=== PATIENT | male | born 1930 | race Caucasian/White ===

== ENCOUNTER 2017-02-18 13:26 | Outpatient (CLI) | payer MEDICARE, OTHER ==
--- OUTSIDE RECORDS SUMMARY | 2017-02-18 14:10 | XMS | Clinical Summary ---
:1930 Author Organization [facility] Address [address] [place] [address] Phone Care Team Providers Name Role Phone , Primary Care Provider Unavailable Allergies Not on File Current Medications Not on file Active Problems Not on file Social History Tobacco Use Types Packs/Day Years Used Date Never Assessed Sex Assigned at Date Recorded Not on file Last Filed Vital Signs Not on file Plan of Treatment Not on file Results Not on filefrom Last 3 Months
--- NOTE | 2017-02-18 17:10 | MRI ---
BRAIN MRI WITHOUT CONTRAST 02/18/2017 COMPARISON: 07/18/2016 HISTORY: An 87-year-old male with history of stroke in June, unsteady gait for 2 months. Fall 3 weeks ago. TECHNIQUE: Multiplanar, multisequence MR imaging of the brain is obtained without contrast. FINDINGS: The diffusion weighted imaging demonstrates no evidence for acute infarction. The axial gradient echo imaging demonstrates no evidence for intracranial hemorrhage. There are numerous foci of increased T2 and FLAIR signal within the periventricular deep and subcort ical white matter, evidence of small vessel disease. Stable moderate diffuse cerebral volume loss w ith associated prominence of the CSF-containing spaces noted. There is mild mucosal thickening involving bilateral ethmoid air cells. Arterial flow voids at the axial level of the skull base are unremarkable on the T2-weighted imaging . Regional bone marrow signal intensity is grossly unremarkable. There is degenerative pannus posteri or to the dens, a stable finding. IMPRESSION: Small vessel disease and cerebral volume loss. No evidence for intracranial hemorrhage or acute inf arction. POS: NIRALI
== END 2017-02-18 13:27 | disposition home or self-care (01) ==
LOC: MRI 13:26
PROVIDERS: ATTEND Student in an Organized Health Care Education/Training Program
DX: I63.9 Cerebral infarction, unspecified (principal); I67.9 Cerebrovascular disease, unspecified; R26.81 Unsteadiness on feet; R26.89 Other abnormalities of gait and mobility; W19.XXXA Unspecified fall, initial encounter
CPT/HCPCS: 70551

== ENCOUNTER 2017-02-28 13:21 | Observation (INO) | payer MEDICARE, OTHER ==
[2017-02-28 14:27] LABS: #Eosinphils 0.2 thou/uL (0.0-0.7); #Monocytes 0.5 thou/uL (0.11-0.59); #Neutrophils 4.2 thou/uL (1.40-6.50); %Basophils 0.3 % (0.0-1.0); %Eosinophils 2.9 % (0.0-10.0); %Monocytes 8.9 % (0.0-10.0); Hematocrit 40.1 % (42.0-52.0); Mean Platelet Volume 8.2 fL (7.4-10.4); Red Blood Cell (RBC) Count 4.37 mill/uL (4.70-6.10); White Blood Cell (WBC) Count 5.9 thou/uL (4.8-10.8)
[2017-02-28 14:35] LABS: Prothrombin Time 13.5 SEC (12.0-14.7)
--- NOTE | 2017-02-28 14:41 | CT ---
CT OF THE BRAIN WITHOUT CONTRAST: Date: 02/28/17 INDICATION: 87-year-old male with possible CVA; patient was walking in the yard and reports went into the house and sat down and was unable to get up. Patient reports he tried to get up, but fell and hit his head on the table. The patient reports he is unable to lift his right leg. FINDINGS: The moderate chronic small vessel white matter ischemic change is similar. Small lacunar infarcts in volving the caudate heads and left basal ganglia are similar. There is a worsening air fluid level w ithin the right maxillary sinus with worsening ethmoid paranasal sinus disease. Mastoid air cells ar e clear. Skull is intact. IMPRESSION: 1. No acute intracranial abnormality. 2. Worsening paranasal sinus disease and air fluid level in right maxillary sinus. Recommend correl ation for symptoms and signs of acute sinusitis. There is slight bowing of the anterior wall of the right maxillary sinus inward which appears similar to a MRI examination dated 04/02/16. POS: NIRALI
[2017-02-28 14:48] LABS: ALT (SGPT) 7 U/L (8-55); AST (SGOT) 14 U/L (5-34); Alkaline Phosphatase 81 U/L (40-150); Anion Gap 15 mmol/L (10-20); BUN (Urea Nitrogen) 36 mg/dL (8.4-25.7); Bilirubin, Total 0.4 mg/dL (0.2-1.2); Calc. Creatinine Clearance 0 mL/min (70-130); Calcium 10.3 mg/dL (7.8-10.44); Carbon Dioxide 27 mmol/L (23-31); Chloride 102 mmol/L (98-107); Estimated GFR-MDRD 36; Globulin 3.5 g/dL (2.4-3.5); Protein, Total 7.9 g/dL (5.8-8.1)
[2017-02-28] MEDS ORDERED: Sodium Chloride 0.9% 1,000 ML IV SCH (17:20)
[2017-02-28] MEDS ORDERED: Ondansetron HCl/PF 4 MG/2 ML Vial IVP PRN (17:20)
[2017-02-28] MEDS ORDERED: Acetaminophen 325 MG TAB PO PRN ×2 (17:20→17:25)
[2017-02-28] MEDS ORDERED: Ondansetron ODT 4 MG TAB SL PRN (17:20)
[2017-02-28 17:25] VITALS: BMI 23.2
[2017-02-28] MEDS ORDERED: Ondansetron ODT 4 MG TAB PO PRN (17:25)
[2017-02-28] MEDS ORDERED: HYDROcodone/Acetaminophen 5/325 mg Tablet PO PRN (17:25)
[2017-02-28] MEDS ORDERED: hydrALAZINE 20 MG/ML VIAL SLOW IVP PRN (17:25)
[2017-02-28] MEDS: HYDROcodone/Acetaminophen 10/325 mg Tablet PO PRN (22:00)
[2017-02-28] MEDS: traZODone HCl 50 MG TAB PO SCH (22:02)
[2017-02-28] MEDS: Amlodipine 10 MG TAB PO SCH (22:02)
[2017-02-28] MEDS: Atorvastatin Calcium 20 MG TAB PO SCH (22:02)
[2017-02-28] MEDS: Aspirin 325 mg Enteric Coated Tablet PO SCH (22:02)
[2017-02-28] MEDS: Clopidogrel Bisulfate 75 MG TAB PO SCH (22:02)
[2017-02-28] MEDS: cloNIDine 0.1 MG TAB PO SCH (22:03)
[2017-03-01 05:16] LABS: #Eosinphils 0.1 thou/uL (0.0-0.7); #Lymphocytes 0.8 thou/uL (1.20-3.40); #Monocytes 0.7 thou/uL (0.11-0.59); #Neutrophils 4.9 thou/uL (1.40-6.50); %Eosinophils 1.1 % (0.0-10.0); %Lymphocytes 12.6 % (21.0-51.0); %Monocytes 11.1 % (0.0-10.0); Hematocrit 35.8 % (42.0-52.0); Mean Platelet Volume 8.2 fL (7.4-10.4); Red Blood Cell (RBC) Count 3.87 mill/uL (4.70-6.10); White Blood Cell (WBC) Count 6.5 thou/uL (4.8-10.8)
[2017-03-01 05:30] LABS: Anion Gap 12 mmol/L (10-20); BUN (Urea Nitrogen) 37 mg/dL (8.4-25.7); Calc. Creatinine Clearance 27 mL/min (70-130); Calcium 9.5 mg/dL (7.8-10.44); Carbon Dioxide 27 mmol/L (23-31); Chloride 103 mmol/L (98-107); Cholesterol 167 mg/dl (< 200 Desired); Estimated GFR-MDRD 34; LDL Cholesterol, Calculated 103 mg/dL
[2017-03-01] MEDS: cloNIDine 0.1 MG TAB PO SCH ×2 (08:21→20:30)
[2017-03-01] MEDS: Famotidine 20 MG TAB PO SCH (08:22)
--- NOTE | 2017-03-01 12:27 | MRI ---
BRAIN MRI NONCONTRAST: INDICATIONS: Right lower extremity paresis, resolved. COMPARISON: 02/18/2017 FINDINGS: There is parenchymal atrophy with compensatory dilatation of the ventricular system. No acute ama torial infarction, mass effect, or midline shift. There are redemonstrated, scattered cavitary lacu alejandra infarctions, both supratentorial and infratentorial in location, superimposed upon moderate manager professional development levi microvascular ischemic disease. Prominent opacification of the paranasal sinuses is present, an d notably right maxillary and ethmoid sinuses. Imaged skull base flow voids are grossly patent. IMPRESSION: 1. Redemonstration of atrophy and prominent chronic ischemic disease, with superimposed lacunar inf arctions, multifocal. 2. No acute territorial infarction or mass effect. POS: KAL
--- NOTE | 2017-03-01 13:42 | MRI ---
MRA NECK WITHOUT CONTRAST 3D VOLUME RENDERING: CLINICAL HISTORY: Right lower extremity paralysis, resolved. FINDINGS: The aortic arch and proximal aspects of the great vessels are excluded from view limiting assessment in this region. The imaged bilateral mid to distal common carotid arteries are patent. No high-gr ariel stenosis of either visualized cervical ICA. There is multifocal irregularity of the imaged ECA bilaterally. The visualized bilateral vertebral arteries are mildly tortuous without high-grade foc al stenosis. FINDINGS: Limited visualization, as above. Within the imaged aspects of the arterial system of the neck by no ncontrast [id number] technique, no definitive high-grade common carotid or internal carotid sten osis. POS: KAL
--- NOTE | 2017-03-01 13:49 | MRI ---
MRA BRAIN: DATE: 03/01/17. HISTORY: Right lower extremity paralysis which has now resolved. TECHNIQUE: Three-D [id number] images of the [place] and vertebrobasilar system are obtained in add ition to 3D MIP images. FINDINGS: There is mild narrowing involving the A1 segment of the left anterior cerebral artery which could be small in size, which is a normal variant, or possibly related to atherosclerotic narrowing. There is also a suggestion of a small focal area of narrowing involving the most proximal aspect superior branch of the M1 segment of the left middle cerebral artery which is also probably related to athero sclerotic narrowing. There is signal void involving the distal right vertebral artery. However, the signal within each d istal vertebral artery is not well visualized. I am unsure if this is artifactual, but given greate r dropout flow-related enhancement, this could be related to focal area of severe narrowing within t he distal right vertebral artery. There is opacification of the right maxillary antrum partially imaged. IMPRESSION: 1. Suggested areas of atherosclerotic narrowing involving the A1 segment left anterior cerebral art anil versus normal variant as well as focal area of atherosclerotic narrowing involving the superior branch of the left middle cerebral artery proximally. 2. Decreased flow-related enhancement involving each distal vertebral artery which is probably zahida factual, but there is a greater focal degree of decreased flow-related enhancement involving the dis shahida right vertebral artery which could be related to either a focal area of severe narrowing or poss ibly artifactual. 3. Focal eccentric narrowing involving the proximal basilar artery just distal to the confluence wh ich may be related to atherosclerotic narrowing. POS: NIRALI
--- NOTE | 2017-03-01 15:27 | DIS ---
DATE OF ADMISSION: 02/28/2017 DATE OF DISCHARGE: 03/01/2017 DISCHARGE DIAGNOSES: 1. Transient ischemic attack. 2. Cerebrovascular disease with history of stroke in the past. 3. Essential hypertension. 4. Atherosclerotic coronary artery disease. 5. Chronic kidney disease stage 3. CONSULTATIONS: Neurology. PROCEDURES: MRI of the head and neck with MRA showed no acute ischemic infarcts, chronic cerebrovas cular disease without evidence of significant disease in the location that would explain symptoms. HISTORY AND PHYSICAL: Mr. Madrigal is an 87-year-old gentleman with history of known vascular diseas e who presented to the emergency department after being unable to move his right leg. He got up yes terday, the morning of admission, to sit in his chair and then after that was unable to move his leg . He was brought to the emergency department for evaluation. Per the ER doctor, he was described as being able to lift his leg off the table and initiate movemen t. When I saw him, he was essentially back to normal. We were called for admission. HOSPITAL COURSE: The patient was examined by me in the Emergency Department with the above findings . He was placed in observation, MRI/MRA were obtained, he was continued on his full dose aspirin an d Plavix. Overnight, he had no further episodes. An MRI was negative for acute infarct, MRA head, no acute findings that would coincide with his clinical findings. He was seen by physical therapy and was able to stand, on second visit was able to ambulate with janet e assistance, but with the aid of a walker. He was stable for discharge with outpatient followup. PHYSICAL EXAMINATION: The patient was seen and examined on the day of discharge. Discharge plan and disposition was discussed with the patient face to face at the bedside. DISCHARGE MEDICATIONS: 1. Aspirin 325 mg daily. 2. Plavix 75 mg p.o. daily. 3. Amlodipine 10 mg p.o. at bedtime. 4. Lipitor 20 mg p.o. at bedtime. 5. Vitamin D3 2000 units p.o. b.i.d. 6. Folic acid 1 mg daily. 7. Hydrocodone 1 tab b.i.d. p.r.n. per home dosing. 8. Clonidine 0.1 mg p.o. b.i.d. 9. Trazodone 50 mg p.o. at bedtime. FOLLOWUP APPOINTMENTS: 1. Primary care physician within a week. PCP is Dr. Salbador Vasquez. 2. Follow up with his neurologist, Dr. Abeba Mensah in 1-2 weeks per their clinic. DISCHARGE ACTIVITY: As tolerated. DISCHARGE DIET: Heart healthy. DISCHARGE CONDITION: Stable. DISPOSITION: Being discharged to home via private vehicle with home health care for PT, OT. INSTRUCTIONS: Return to the emergency department worsening or return of symptoms.
--- NOTE | 2017-03-01 16:25 | HP ---
DATE OF ADMISSION: 02/28/2017 CHIEF COMPLAINT: Right leg paralysis. HISTORY OF PRESENT ILLNESS: Mr. Madrigal is an 87-year-old white male with a history of cerebrovascu lar disease, hyperlipidemia, hypertension, coronary artery disease, and chronic kidney disease stage 4, who presents to the emergency department for evaluation of acute onset of left leg paralysis. The patient states he was walking on 02/27/2017 and was doing well. Today, he was initially doing f ine, and sat down but then was unable to get up. He states that he did try and fell and hit his hea d on a table and has been unable to lift his right leg. He denies any pain or numbness and no paresis. He does have a history of stroke back in 2003 and in 03/2016. A CT scan of the head reportedly was unremarkable. He had workup at [facility], but we do not have complete records from there either or no films. In our Emergency Department, CT scan of the head was negative for acute intracranial abnormality. C BC was normal, and CMP was fairly normal with creatinine of 1.80, which is actually improved from hi s normal baseline. We were subsequently called for admission. On my questioning, the patient is able to move his right leg now. He can lift it above the bed with out any assistance. His strength appeared to be normal. PAST MEDICAL HISTORY: 1. Cerebrovascular disease as above. 2. Hyperlipidemia, primary cholesterol. 3. Hypertension. 4. Coronary artery disease. 5. Degenerative joint disease. 6. Chronic kidney disease stage 3-4. 7. Prostate cancer. PAST SURGICAL HISTORY: Includes, 1. Prostatectomy in 1991. 2. Hernia repair x4. He had left and right inguinal hernias repaired in 1966, left repeat in 1976, and the left repeat in 1982. 3. Right total hip arthroplasty. 4. Skin cancer removal. 5. Coronary artery bypass grafting x3 in 1996. 6. Right carotid endarterectomy in 2004. 7. Left total knee replacement in 2000. 8. Nerve transposition of the right elbow. 9. Bilateral cataract replacement in 2005. 10. Appendectomy in 194. HOME MEDICATIONS: 1. Hydrochlorothiazide 12.5 mg p.o. daily. 2. Amlodipine 10 mg daily. 3. Aspirin 325 mg daily. 4. Lipitor 80 mg p.o. at bedtime. 5. Vitamin D3 2000 units daily. 6. Plavix 75 mg daily. 7. Folic acid 1 mg daily. 8. Trazodone 50 mg p.o. at bedtime. 9. Iron sulfate 325 mg p.o. q.a.m. 10. Hydrocodone as needed. 11. Lopressor 50 mg p.o. b.i.d. 12. Omeprazole 20 mg p.o. q.a.m. 13. Clonidine 0.1 mg p.o. b.i.d. ALLERGIES: CODEINE causes nausea and vomiting. PENICILLINS caused him to fall but that was some 60 + years ago. FAMILY HISTORY: Negative for clotting or bleeding disorder, no immune dysfunction. SOCIAL HISTORY: Significant for daily alcohol but drinks only a few drinks a day. No tobacco ever and no history of IV drug use. REVIEW OF SYSTEMS: A 10-point review of systems was performed, negative for all systems except as s tated per HPI. PHYSICAL EXAMINATION: VITAL SIGNS: Temperature 98.2, pulse 79, blood pressure 195/92, respiratory rate 24, and satting 10 0% on room air. GENERAL: He is awake. He is alert. He is oriented x3. He is a thin, frail, elderly white male, w ho appears to be in no acute distress. HEENT: Normocephalic, atraumatic. Pupils equal, round, reactive to light bilaterally, mucous are m oist. There are no visible lesions. No thrush. NECK: Supple. There is no lymphadenopathy, no JVD, no thyromegaly. I do not hear any carotid brui ts. LUNGS: Clear to auscultation bilaterally. He has no wheezes, no rales, no rhonchi, and normal expi ratory phase. He has good air movement. Symmetrical chest excursion. CARDIOVASCULAR: Normal S1 and S2. No S3 or S4. He does have a 2/6 systolic ejection murmur best h eard at the left upper sternal border. ABDOMEN: Scaphoid. It is nontender, nondistended. No masses or organomegaly. He has normoactive bowel sounds present in all 4 quadrants. There is no rebound, rigidity, or guarding. EXTREMITIES: No cyanosis, no clubbing, no edema. He has got barely palpable thready pulse in the p osterior tibial and slightly better in dorsalis pedis. SKIN: Otherwise warm, moist, well perfused. He has no rashes, no lesions. There is a small hemato ma present on the left occiput. MUSCULOSKELETAL: Normal to inspection. He has no inflamed joints and no palpable joint effusions. NEUROLOGIC: Cranial nerves II through XII are grossly intact. He has a broken unsteady speech dilip dario, but thought process appears to be intact. Currently, he has 5/5 strength in his extensor and f lexor groups of the proximal muscle groups and distal muscle groups of his four extremities. He has no focal neurologic deficit at this time. LABORATORY DATA: CBC is normal. White blood cell count 5.9, hemoglobin 13.0. CMP is normal. Creatinine 1.80. Liver functions normal. RADIOGRAPHIC STUDIES: Reportedly, pelvic and head films from the outside facility were normal. CT scan of the head here is negative for any acute intracranial abnormality. ASSESSMENT AND PLAN: 1. Stroke versus transient ischemic attack. Neurologically, the patient seems basically resolved h is strength issues. I did not try to get him up at this time. We will place him in observation, we will get a MRI/MRA, we will continue his home aspirin and Plavix. We will get physical therapy, oc cupational therapy, and speech therapy evaluations, we will check a fasting lipid profile, and monit or him overnight. We will ask Neurology to evaluate and make recommendations. 2. History of hyperlipidemia: On Lipitor, we will continue. Check fasting lipid profile. 3. Hypertension. Continue home medications, watch his blood pressure, it is elevated now, but he h as not had his morning blood pressure medicines. 4. History of coronary artery disease, negative symptoms. Troponin was negative. 5. Chronic kidney disease 3-4. His creatinine is 1.0 which is good as I have seen it in the recent past on the lab history. 6. History of prostate cancer, status post prostatectomy, no urinary symptoms.
[2017-03-01] MEDS: traZODone HCl 50 MG TAB PO SCH (20:28)
[2017-03-01] MEDS: Atorvastatin Calcium 20 MG TAB PO SCH (20:28)
[2017-03-01] MEDS: Amlodipine 10 MG TAB PO SCH (20:28)
[2017-03-01] MEDS: Clopidogrel Bisulfate 75 MG TAB PO SCH (20:28)
[2017-03-01] MEDS: HYDROcodone/Acetaminophen 10/325 mg Tablet PO PRN (20:29)
[2017-03-01] MEDS: Aspirin 325 mg Enteric Coated Tablet PO SCH (20:29)
--- NOTE | 2017-03-01 22:38 | PRG ---
DATE OF SERVICE: 03/01/2017 CONSULTING PHYSICIAN: Hospitalist Service. Mr. Madrigal is an 87-year-old gentleman, who was previously seen by Dr. Mensah. He came in with compl aints of increased difficulty walking. He had complaints of pain in his lower extremities, which on the left had been fairly chronic secondary to prior hip replacement, is now complaining of some magalys n in the right leg as well. He was evaluated for a possible stroke, and his workup was negative. His exam shows some pain in both lower extremities with testing muscle strength. Sensation was inta ct. No edema or cyanosis was noted. SUMMARY: This is an elderly gentleman, who has some lower extremity pain, is making it difficult fo r him to walk. I am going to try him on a short course of steroids and followup with him in the off ice.
[2017-03-02] MEDS ORDERED: predniSONE 20 MG TAB PO SCH (08:00)
[2017-03-02] MEDS: HYDROcodone/Acetaminophen 10/325 mg Tablet PO PRN (09:32)
[2017-03-02] MEDS: Famotidine 20 MG TAB PO SCH (09:34)
[2017-03-02] MEDS: cloNIDine 0.1 MG TAB PO SCH (09:34)
--- NOTE | 2017-03-02 14:12 | PDOC.PN ---
- Subjective Encounter Start Date: 03/02/17 Encounter Start Time: 11:45 Pt seen and exmined. Surrounded by family. Seen by neuro last nght. Pt has had increased pain starting yesterday afternoon to the right hip and is unable to move it due tot he pain. Wilson mentioned this and started prednisone. PT says the norco helps. today, seems a little worse. MRI/MRA unremarkable. No intervention added by Dr Byrne. 10 point ROS performed and neg for all systems except as per HPI - Objective Resuscitation Status: Resuscitation Status FULL:Full Resuscitation MAR Reviewed: Yes Vital Signs & Weight: Vital Signs (12 hours) Temp Pulse Resp BP BP BP BP 03/02/17 12:00 98.0 F 71 16 124/66 03/02/17 10:45 122/61 110/73 03/02/17 09:34 165/81 H 03/02/17 08:00 98.0 F 71 16 03/02/17 07:15 97.9 F 74 18 165/81 H 03/02/17 04:00 97.6 F 70 16 139/72 Pulse Ox 03/02/17 12:00 95 03/02/17 10:45 03/02/17 09:34 03/02/17 08:00 03/02/17 07:15 96 03/02/17 04:00 97 Weight Weight 152 lb 14.4 oz I&O: 03/01/17 03/02/17 03/03/17 06:59 06:59 06:59 Intake Total 1365 1590 Balance 1365 1590 Result Diagrams: 03/01/17 03:51 03/01/17 03:51 Radiology Reviewed by me: Yes EKG Reviewed by me: Yes Phys Exam - Physical Examination Constitutional: NAD HEENT: PERRLA, moist MMs, sclera anicteric, oral pharynx no lesions Neck: no nodes, no JVD, supple, full ROM Respiratory: no wheezing, no rales, no rhonchi, clear to auscultation bilateral Cardiovascular: RRR, no significant murmur, no rub Gastrointestinal: soft, non-tender, no distention, positive bowel sounds Musculoskeletal: no edema, pulses present right hip tender to palpation, increased pain with active and passive ROM Neurological: non-focal, normal sensation, moves all 4 limbs Lymphatic: no nodes Psychiatric: normal affect, A&O x 3 Skin: no rash, normal turgor, cap refill <2 seconds Dx/Plan (1) HLD (hyperlipidemia) Code(s): E78.5 - HYPERLIPIDEMIA, UNSPECIFIED Status: Acute Qualifiers: Hyperlipidemia type: mixed hyperlipidemia Qualified Code(s): E78.2 - Mixed hyperlipidemia (2) HTN (hypertension) Code(s): I10 - ESSENTIAL (PRIMARY) HYPERTENSION Status: Acute Qualifiers: Hypertension type: essential hypertension Qualified Code(s): I10 - Essential (primary) hypertension (3) History of CVA (cerebrovascular accident) Code(s): Z86.73 - PRSNL HX OF TIA (TIA), AND CEREB INFRC W/O RESID DEFICITS Status: Acute Comment: improved, now cant moveright leg due ot pain, right am and face normal (4) TIA (transient ischemic attack) Status: Resolved (5) CKD (chronic kidney disease) Code(s): N18.9 - CHRONIC KIDNEY DISEASE, UNSPECIFIED Status: Chronic Qualifiers: Chronic kidney disease stage: stage 3 (moderate) Qualified Code(s): N18.3 - Chronic kidney disease, stage 3 (moderate) Comment: Avoid nephrotoxic meds, serial creatinine (6) Hip pain, right Code(s): M25.551 - PAIN IN RIGHT HIP Status: Acute Comment: after fall. report was cameron tinitial cecelia megative, but i will repeat these STAT. suspect a missed fracture - Plan * .
--- NOTE | 2017-03-02 15:16 | RAD ---
LEFT HIP TWO VIEWS: 03/02/17 HISTORY: 87-year-old male with left hip pain following a recent fall. Total left hip replacement changes. Surgical clips left hemipelvis. No evidence for acute fracture o r dislocation. IMPRESSION: Status post left total hip replacement changes without fracture or without evidence for a periprosth etic fracture or dislocation or other acute process. POS: NIRALI
--- NOTE | 2017-03-02 15:17 | RAD ---
RIGHT HIP TWO VIEWS: 03/02/17 HISTORY: 87-year-old male with right hip pain following a recent fall. Mild right hip degenerative changes. Postsurgical changes in the right pelvis and right scrotum. IMPRESSION: No fracture or dislocation. POS: NIRALI
[2017-03-02 15:55] VITALS: BP 147/79; TEMP 97.8
--- NOTE | 2017-03-30 12:16 | EKG ---
Test Reason : Blood Pressure : / mmHG Vent. Rate : 070 BPM Atrial Rate : 070 BPM P-R Int : 132 ms QRS Dur : 144 ms QT Int : 448 ms P-R-T Axes : 000 -32 007 degrees QTc Int : 483 ms Normal sinus rhythm Left axis deviation Right bundle branch block Voltage criteria for left ventricular hypertrophy No STEMI Abnormal ECG Confirmed by KARLI MOE, BOBBY Verduzco ([id number]), news video editor ANTHONY SEARS ([id number]) on 03/30/2017 12:16:05 PM Referred By: Confirmed By:BOBBY CALVILLO MD
== END 2017-03-02 18:39 ==
LOC: ERS 13:21 → 2SE 15:20
PROVIDERS: ADMIT Internal Medicine Infectious Disease; ATTEND Internal Medicine Infectious Disease
DX: G45.9 Transient cerebral ischemic attack, unspecified (principal); I67.9 Cerebrovascular disease, unspecified; I25.10 Atherosclerotic heart disease of native coronary artery without angina pectoris; I12.9 Hypertensive chronic kidney disease with stage 1 through stage 4 chronic kidney disease, or unspecified chronic kidney disease; N18.4 Chronic kidney disease, stage 4 (severe); E78.5 Hyperlipidemia, unspecified; M19.90 Unspecified osteoarthritis, unspecified site; Z79.02 Long term (current) use of antithrombotics/antiplatelets; Z79.82 Long term (current) use of aspirin; Z79.899 Other long term (current) drug therapy; Z88.5 Allergy status to narcotic agent; Z88.0 Allergy status to penicillin; Z98.42 Cataract extraction status, left eye; Z98.41 Cataract extraction status, right eye; Z96.641 Presence of right artificial hip joint; Z95.1 Presence of aortocoronary bypass graft; Z96.1 Presence of intraocular lens; Z96.652 Presence of left artificial knee joint; Z90.49 Acquired absence of other specified parts of digestive tract; Z90.79 Acquired absence of other genital organ(s); Z98.890 Other specified postprocedural states; Z86.73 Personal history of transient ischemic attack (TIA), and cerebral infarction without residual deficits; Z85.828 Personal history of other malignant neoplasm of skin; Z85.46 Personal history of malignant neoplasm of prostate
CPT/HCPCS: 70450; 70544; 70547; 70551; 73502 ×2; 80048; 80053; 80061; 85025 ×2; 85610; 85730; 93005; 96374; 97139 ×2; 97530 ×3; 99285; G0378; G8978; G8979; G8987; G8988; 36415; G8996-GN-CI; G8997-GN-CI; J0360; J7506; Q0162

== ENCOUNTER 2018-02-05 11:47 | Outpatient (CLI) | payer MEDICARE, OTHER ==
--- NOTE | 2018-02-05 13:51 | RAD ---
3 VIEW CERVICAL SPINE SERIES: Date: 02/05/18 INDICATION: Spondylolisthesis. FINDINGS: Three lateral views of the cervical spine are submitted for interpretation. The low cervical spine/ce rvicothoracic junction is not visualized for comment. There is degenerative kyphotic curvature of the mid to low cervical spine with near complete loss of disc space height of C5-6 and a slight degree o f retrolisthesis. No obvious translational motion. Prevertebral soft tissues are normal in thickness. There are metallic clips overlying the neck. IMPRESSION: Prominent degenerative findings of the cervical spine, limited by bilateral projections. Mild retroli sthesis of C5-6 without significant degree of translational motion. POS: [facility]
--- NOTE | 2018-02-05 13:52 | RAD ---
LUMBAR SPINE SERIES THREE VIEWS: INDICATIONS: Spondylolisthesis. TECHNIQUE: Neutral and lateral extension and flexion views are submitted for interpretation. FINDINGS: On the neutral projection, there is no significant malalignment. No obvious translational motion of significance is discerned between flexion and extension positioning. There is mild superior endplate height loss of L1. There is multilevel endplate degenerative change and disk space narrowing throug hout the lumbar spine, as well as multilevel facet osteoarthritis. Incidental note of degenerative f indings of the lower thoracic spine. Partially imaged hip hardware and metallic clips overly the pel vis. Atherosclerotic vascular disease is incidentally noted. IMPRESSION: 1. No obvious translational motion or significant malalignment of the lumbar spine. 2. Mild L1 superior endplate height loss. Correlate clinically. POS: NIRALI
== END 2018-02-05 11:48 | disposition home or self-care (01) ==
LOC: RAD 11:47
PROVIDERS: ATTEND Specialist
DX: M47.812 Spondylosis without myelopathy or radiculopathy, cervical region (principal); M47.816 Spondylosis without myelopathy or radiculopathy, lumbar region; M43.12 Spondylolisthesis, cervical region
CPT/HCPCS: 72040; 72100

== ENCOUNTER 2018-02-18 13:43 | Outpatient (CLI) | payer MEDICARE, OTHER ==
--- NOTE | 2018-02-18 15:37 | RAD ---
LUMBAR SPINE FOUR VIEWS: History: 88-year-old male with history of spondylosis of the lumbar region without myelopathy or radiculopathy . Comparison: 02-05-18 FINDINGS: There are some moderate dextroscoliosis. Disc osteophytosis, particularly of the upper lumbar disc. E xtensive surgical clips in the pelvis and left total hip replacement. No evidence for significant abn ormal translation between flexion and extension. IMPRESSION: Extensive dextroscoliosis with spondylosis, particularly the upper lumbar spine, stable from prior st udy. POS: NIRALI
--- NOTE | 2018-02-18 16:04 | RAD ---
CERVICAL SPINE FOUR VIEWS INCLUDING FLEXION AND EXTENSION AND LATERAL VIEWS: 02/18/18 COMPARISON: 02/05/18. Multilevel disc osteophytosis changes are noted, particularly at C4-5, C5-6, and C6-7 with generalize d facet arthrosis. No significant abnormal translation between flexion and extension. No significant prevertebral soft tissue swelling. Stable mild retrolisthesis of C5 on C6. IMPRESSION: Significant multilevel spondylosis with very mild retrolisthesis of C5 on C6 without evidence for abn ormal translation between flexion and extension. POS: NIRALI
--- NOTE | 2018-02-18 16:54 | MRI ---
MRI LUMBAR SPINE NONCONTRAST: Date: 02/18/18 HISTORY: Low back pain. Worsening after a fall 6 months ago. FINDINGS: Images including the retroperitoneum show atrophy of the cortex of each kidney. Small cysts arise fro m the cortex of each kidney. Some hypointense lesions involving the cortex of the left kidney likely represent the equivalent of hyperdense cysts. There is prominent rightward convex rotatory scoliotic curvature. Degenerative changes of the lower l umbar spine are apparent. Conus medullaris is within normal limits. Scattered areas of fatty change o f the bone marrow and scattered hemangiomas are apparent. There is desiccation of all of the interver tebral discs. T12-L1: Disc space narrowing and minimal degenerative spondylolisthesis. Mild disc bulge. Circumfere ntial degenerative changes with minimal stenosis of the central canal and mild stenosis of each neura l foramen. L1-2: Disc space narrowing. Minimal disc bulge. Circumferential degenerative changes. Minimal stenos is of the central canal. Moderate to severe bilateral foraminal stenosis. L2-3: Disc space narrowing. Mild disc bulge. Thecal sac is patent. Moderate bilateral foraminal sten osis. L3-4: Disc space narrowing with minimal degenerative spondylolisthesis. Posterior disc bulge and cir cumferential degenerative changes. Moderate stenosis of the central canal. Mild right and moderate to severe left foraminal stenosis. L4-5: Disc space narrowing. Minimal degenerative spondylolisthesis. Disc bulge and circumferential d egenerative changes with moderate stenosis of the central canal and each neural foramen. L5-S1: Minimal disc bulge. Osteophytosis of each facet. Thecal sac is patent. Degenerative changes w ith severe right and moderate left foraminal stenosis. IMPRESSION: Multilevel degenerative changes throughout the lumbar spine as detailed above, including significant foraminal stenosis. Most severe on the right at the lumbosacral junction. Clinical correlation regard ing the right L5 dermatome is required. POS: [facility]
--- NOTE | 2018-02-18 17:20 | MRI ---
MRI CERVICAL SPINE NONCONTRAST: Date: 02/18/18 HISTORY: 88-year-old male with M54.12, radiculopathy of cervical region. COMPARISON: No prior cervical spine MRIs. FINDINGS: The cervical spine cord is normal in size and signal. There is partial loss of lordosis. Severe left degenerative facet changes at C2-3, C3-4, and C4-5. Moderate bilateral facet DJD at C7-T1. Moderate r ight facet DJD at C2-3. Mild to moderate right facet DJD at C3-4. Disc space narrowing is mild at C4-5, moderate to severe at C5-6, and moderate at C6-7. Vertebral bod y heights are maintained. C1-2: No central stenosis. C2-3: No high grade central stenosis. Mild right neural foraminal stenosis. Mild to moderate left ne ural foraminal stenosis. C3-4: Broad based disc-osteophytic bar complex protrudes into the anterior aspect of the spinal tyrell l, asymmetrically larger on the left side, contiguous with moderate size left uncinate process osteop hytes. Overall mild degree of central spinal canal stenosis and severe left neural foraminal stenosis . Mild right neural foraminal stenosis. C4-5: Broad based disc-osteophytic bar complex. Mild central stenosis. Small right uncinate process osteophytes causing mild to moderate right neural foraminal stenosis. Moderate size left uncinate pro cess osteophytes causing moderate to severe left neural foraminal stenosis. C5-6: Slight degenerative retrolisthesis of C5 on C6, together with broad based disc-osteophytic bar complex that indents the ventral surface of the spinal cord, results in moderate to severe central s roger canal stenosis. Bilateral moderate sized uncinate process osteophytes result in moderate to sev ere bilateral neural foraminal stenosis, right greater than left. There is ligamentum flavum thickeni ng contributing to the central spinal canal stenosis. C6-7: Broad based disc-osteophytic bar complex protrudes into the spinal canal, asymmetrically large r on the right, causing moderate to severe central spinal canal stenosis. Bilateral moderate to large uncinate process osteophytes causing severe right neural foraminal stenosis and moderate left neural foraminal stenosis. C7-T1: No high grade central stenosis. Bilateral moderate neural foraminal stenosis. IMPRESSION: 1. High grade cervical spondylosis, with multilevel degenerative disc disease and multilevel facet o steoarthrosis. The facet osteoarthrosis is asymmetrically worse on the left side. 2. Multiple levels of central spinal canal stenosis and high grade neural foraminal stenosis. POS: [facility]
== END 2018-02-18 13:44 | disposition home or self-care (01) ==
LOC: BICMRI 13:43
PROVIDERS: ATTEND Specialist
DX: M47.812 Spondylosis without myelopathy or radiculopathy, cervical region (principal); M47.816 Spondylosis without myelopathy or radiculopathy, lumbar region; M51.16 Intervertebral disc disorders with radiculopathy, lumbar region; M41.9 Scoliosis, unspecified; M48.02 Spinal stenosis, cervical region; M99.81 Other biomechanical lesions of cervical region; M50.10 Cervical disc disorder with radiculopathy, unspecified cervical region; M99.83 Other biomechanical lesions of lumbar region
CPT/HCPCS: 72050; 72120; 72141; 72148

== ENCOUNTER 2018-03-06 14:06 | Emergency (ER) | payer MEDICARE, OTHER ==
[2018-03-06 14:40] LABS: #Eosinphils 0.2 thou/uL (0.0-0.7); #Lymphocytes 1.2 thou/uL (1.20-3.40); #Monocytes 0.4 thou/uL (0.11-0.59); #Neutrophils 3.5 thou/uL (1.40-6.50); %Basophils 0.6 % (0.0-1.0); %Eosinophils 3.5 % (0.0-10.0); %Lymphocytes 23.3 % (21.0-51.0); %Monocytes 6.7 % (0.0-10.0); %Neutrophils 65.8 % (42.0-75.0); Hemoglobin 13.6 g/dL (14.0-18.0); Mean Corpuscular HGB CONC 33.9 g/dL (32.0-36.0); Mean Corpuscular Volume 88.6 fL (78.0-98.0); Mean Platelet Volume 9.2 fL (7.4-10.4); Platelet Count 128 thou/uL (130-400); RBC Distribution Width 12.1 % (11.5-14.5); Red Blood Cell (RBC) Count 4.53 mill/uL (4.70-6.10); White Blood Cell (WBC) Count 5.3 thou/uL (4.8-10.8)
[2018-03-06 15:00] LABS: ALT (SGPT) 17 U/L (8-55); AST (SGOT) 25 U/L (5-34); Albumin 5.1 g/dL (3.4-4.8); Alkaline Phosphatase 72 U/L (40-150); Anion Gap 15 mmol/L (10-20); BUN (Urea Nitrogen) 39 mg/dL (8.4-25.7); Bilirubin, Total 0.6 mg/dL (0.2-1.2); Calc. Creatinine Clearance 0 mL/min (70-130); Calcium 10.4 mg/dL (7.8-10.44); Carbon Dioxide 26 mmol/L (23-31); Chloride 103 mmol/L (98-107); Estimated GFR-MDRD 32; Globulin 3.5 g/dL (2.4-3.5); Glucose 87 mg/dL (83-110); Potassium 4.3 mmol/L (3.5-5.1); Protein, Total 8.6 g/dL (5.8-8.1); Sodium 140 mmol/L (136-145)
[2018-03-06 15:03] LABS: Troponin I 0.126 ng/mL (< 0.028)
[2018-03-06 15:06] LABS: CKMB 7.4 ng/mL (0-6.6)
[2018-03-06] MEDS ORDERED: cloNIDine 0.1 MG TAB ONE (15:20)
[2018-03-06 17:56] LABS: CKMB 5.4 ng/mL (0-6.6); Troponin I 0.103 ng/mL (< 0.028)
--- NOTE | 2018-03-07 17:21 | EKG ---
Test Reason : HTN Blood Pressure : / mmHG Vent. Rate : 063 BPM Atrial Rate : 063 BPM P-R Int : 134 ms QRS Dur : 148 ms QT Int : 476 ms P-R-T Axes : 000 -33 006 degrees QTc Int : 487 ms Normal sinus rhythm Left axis deviation Right bundle branch block Voltage criteria for left ventricular hypertrophy Abnormal ECG Confirmed by FERNANDEZ MOE, ELVIA ([id number]), editor map ANTHONY SEARS ([id number]) on 03/07/2018 5:20:44 PM Referred By: Confirmed By:ELVIA PRESLEY MD
== END 2018-03-06 18:40 | disposition home or self-care (01) ==
LOC: ERS 14:06
DX: I10 Essential (primary) hypertension (principal); E78.5 Hyperlipidemia, unspecified; Z79.899 Other long term (current) drug therapy
CPT/HCPCS: 36415; 80053; 82553; 84484; 85025; 93005; J1040; S0020

== ENCOUNTER 2018-05-12 10:03 | Inpatient (IN) | payer MEDICARE, OTHER ==
[2018-05-12 10:30] LABS: #Eosinphils 0.1 thou/uL (0.0-0.7); #Lymphocytes 0.6 thou/uL (1.20-3.40); #Monocytes 0.5 thou/uL (0.11-0.59); #Neutrophils 5.3 thou/uL (1.40-6.50); %Basophils 0.4 % (0.0-1.0); %Eosinophils 1.3 % (0.0-10.0); %Lymphocytes 9.9 % (21.0-51.0); %Monocytes 6.9 % (0.0-10.0); %Neutrophils 81.5 % (42.0-75.0); Mean Corpuscular HGB CONC 33.6 g/dL (32.0-36.0); Mean Corpuscular Hemoglobin 30.8 pg (27.0-31.0); Mean Corpuscular Volume 91.8 fL (78.0-98.0); Mean Platelet Volume 8.9 fL (7.4-10.4); Platelet Count 135 thou/uL (130-400); RBC Distribution Width 12.6 % (11.5-14.5); White Blood Cell (WBC) Count 6.5 thou/uL (4.8-10.8)
[2018-05-12 10:50] LABS: ALT (SGPT) 34 U/L (8-55); AST (SGOT) 32 U/L (5-34); Albumin 4.4 g/dL (3.4-4.8); Alkaline Phosphatase 71 U/L (40-150); Anion Gap 18 mmol/L (10-20); BUN (Urea Nitrogen) 69 mg/dL (8.4-25.7); Bilirubin, Total 0.5 mg/dL (0.2-1.2); Calc. Creatinine Clearance 0 mL/min (70-130); Carbon Dioxide 20 mmol/L (23-31); Chloride 107 mmol/L (98-107); Estimated GFR-MDRD 25; Globulin 3.3 g/dL (2.4-3.5); Glucose 77 mg/dL (83-110); Potassium 4.8 mmol/L (3.5-5.1); Protein, Total 7.7 g/dL (5.8-8.1); Sodium 140 mmol/L (136-145)
[2018-05-12 11:19] LABS: CKMB 6.8 ng/mL (0-6.6)
--- NOTE | 2018-05-12 11:46 | RAD ---
PA AND LATERAL CHEST: History: Chest pain. Comparison: 07-05-10 FINDINGS: There are changes of median sternotomy. The heart size is borderline. There is patchy consolidation i n the right upper lobe. No pneumothoraces or pleural effusions are seen. IMPRESSION: Findings are suspicious for pneumonia. POS: [facility]
[2018-05-12] MEDS ORDERED: Bisacodyl 10 MG SUPP ONE (11:52)
--- NOTE | 2018-05-12 12:13 | RAD ---
2 VIEWS OF ABDOMEN: Date: 05/12/18 HISTORY: Obstipation. Pain across chest and radiating from the upper abdomen. Pain is constant. FINDINGS: There is a moderate amount of retained fecal material seen throughout the colon suggesting constipati on. No dilated loops of small bowel are visualized. Multiple surgical clips overlie the pelvis. No kuo spicious calcifications are visualized. Left total hip prosthesis is present. Degenerative change is noted in the spine. Vascular calcifications seen in the region of the iliac and femoral arteries. There is partial visualization of postsurgical changes related to CABG. Vascular calcification seen i n the thoracic aorta. Linear interstitial densities are seen at each lung base. This would be better evaluated with chest x-ray. IMPRESSION: 1. Evidence for constipation. 2. Postsurgical changes of the pelvis. 3. Degenerative changes in the spine. 4. Suggested increased interstitial densities in each lung base. This would be better evaluated with chest x-ray. 5. Remote fracture right posterior 10th and 11th ribs. POS: [facility]
[2018-05-12] MEDS ORDERED: Magnesium Citrate 300 ML BOT ONE (12:35)
[2018-05-12] MEDS ORDERED: Sodium Chloride 0.9% 100 ML ONE (13:05)
[2018-05-12] MEDS ORDERED: cefTRIAXone\\ROCEPHIN 2 GM VIAL ONE (13:05)
[2018-05-12] MEDS ORDERED: Azithromycin 500 MG VIAL ONE ×2 (13:05→14:02)
[2018-05-12] MEDS ORDERED: Acetaminophen 500 MG TAB ONE (13:24)
[2018-05-12] MEDS ORDERED: Ondansetron PF 4 MG/2 ML Vial ONE (14:08)
[2018-05-12 14:57] LABS: CKMB 4.6 ng/mL (0-6.6)
[2018-05-12] MEDS ORDERED: Furosemide 40 MG/4 ML VIAL SLOW IVP SCH (16:00)
[2018-05-12] MEDS ORDERED: Ondansetron ODT 4 MG TAB PO PRN (16:15)
[2018-05-12] MEDS ORDERED: Ondansetron PF 4 MG/2 ML Vial IVP PRN (16:15)
[2018-05-12] MEDS ORDERED: Acetaminophen 325 MG TAB ONE (16:25)
[2018-05-12] MEDS ORDERED: Furosemide 40 MG/4 ML VIAL ONE (16:25)
[2018-05-12 16:37] LABS: Actual Bicarbonate (HCO3a) 21.5 mEq/L (22-28); Analyzer IN Cardio ER; CO2 Tension 29.3 mmHg (35.0-45.0); Calcium, Ionized 1.15 mmol/L (1.12-1.30); Carboxyhemoglobin (COHb) 0.3 gm% (0.0-3.0); Hemoglobin (Hb) 12.5 g/dL (14.0-18.0); Potassium - ABG Lab 4.46 mmol/L (3.70-5.30); pH, Arterial 7.48 (7.35-7.45)
[2018-05-12 16:40] LABS: O2 Tension (PaO2) 56.2 mmHg (> 60.0)
[2018-05-12 16:41] LABS: Puncture Site LRA
[2018-05-12] MEDS ORDERED: VANCOMYCIN IVPB PRN ×2 (18:05→18:18)
[2018-05-12] MEDS ORDERED: CEFEPIME IVPB PRN ×2 (18:05→18:18)
[2018-05-12] MEDS ORDERED: Vancomycin HCl 1 GM in Premix Bag 1 BAG IVPB SCH (19:00)
[2018-05-12] MEDS ORDERED: Cefepime 2 GM in Sodium Chloride 0.9% 100 ML IVPB SCH ×2 (20:00→21:00)
[2018-05-12] MEDS: Atorvastatin Calcium 20 MG TAB PO SCH (21:00)
[2018-05-12] MEDS: Amlodipine 10 MG TAB PO SCH (21:00)
[2018-05-12] MEDS ORDERED: Aspirin 325 mg Enteric Coated Tablet PO SCH (21:00)
[2018-05-12] MEDS ORDERED: CCU Electrolyte Replacement 1 EACH FS ONE (23:14)
[2018-05-12] MEDS ORDERED: Potassium Chloride 40 MEQ in Premix Bag 1 BAG IVPB PRN (23:22)
[2018-05-12] MEDS ORDERED: Potassium Chloride 40 MEQ in Sodium Chloride 0.9% 250 ML 250 ML IVPB PRN (23:22)
[2018-05-12] MEDS ORDERED: Potassium Phosphate 12 MMOL in Sodium Chloride 0.9% 250 ML 250 ML IV PRN (23:22)
[2018-05-12] MEDS ORDERED: Magnesium 2 GM/NS 0.9% 100 ML 2 GM in Premix Bag 1 BAG IVPB PRN (23:22)
[2018-05-12] MEDS ORDERED: CCU ELECTROLYTE REPLACEMENT PROTOCOL FS PRN (23:22)
[2018-05-12] MEDS ORDERED: Magnesium Oxide 400 MG TAB PO PRN ×2 (23:22)
[2018-05-12] MEDS ORDERED: Potassium Chloride 20 MEQ TAB PO PRN (23:22)
[2018-05-12] MEDS ORDERED: Potassium Phosphate 9 MMOL in Sodium Chloride 0.9% 100 ML IVPB PRN (23:22)
[2018-05-12] MEDS ORDERED: Potassium Phosphate 15 MMOL in Sodium Chloride 0.9% 250 ML 250 ML IV PRN (23:22)
[2018-05-12] MEDS ORDERED: Clindamycin/D5W 600 MG in Premix Bag 1 BAG IVPB SCH (23:30)
[2018-05-13] MEDS ORDERED: Vancomycin HCl 1 GM in Premix Bag 1 BAG IVPB SCH (00:15)
--- NOTE | 2018-05-13 01:17 | CON ---
DATE OF CONSULTATION: 05/12/2018 CONSULTING PHYSICIAN: Reese Morales. REASON FOR CONSULTATION: Acute respiratory failure related to either pneumonia or congestive heart failure. The following encompassed 45 minutes of critical care time. HISTORY OF PRESENT ILLNESS: The patient is an 88-year-old male, who presented to the emergency room earlier today with obstipation. He was given laxative by mouth and apparently had an episode of emesis. He was hypoxic initially, but became more hypoxic afterwards. He failed non-rebreather facemask oxygen therapy, was placed on BiPAP, and has been comfortable ever since. He denies any preceding cough, congestion or other symptom of pneumonia including fever. He denies any previous history of heart failure. PAST MEDICAL HISTORY: 1. Transient ischemic attack. 2. Hyperlipidemia. 3. Hypertension. PAST SURGICAL HISTORY: Coronary bypass grafting surgery, hernia repair, right hip replacement and prostatectomy. SOCIAL HISTORY: He drinks less than 5 drinks per day. Does not use illicit drugs. Has no smoking history. He is a retired [employer] officer. He also worked for the [employer] for a number of years. PSYCHIATRIC HISTORY: Unremarkable. ALLERGIES: PENICILLIN AND CODEINE. MEDICATIONS: Prior to admission: 1. Ecotrin 325 mg daily. 2. Vitamin D3 of 2000 international units daily. 3. Atorvastatin 40 mg daily. 4. Omeprazole 20 mg daily. 5. Plavix 75 mg daily. 6. Folate 1 mg daily. 7. Amlodipine 10 mg daily. PHYSICAL EXAMINATION: VITAL SIGNS: Presenting temperature was 97.6, blood pressure was initially 170/ 90, pulse 60, respiratory rate 25, blood pressure since fallen 130/65. HEENT: Unremarkable. NECK: No adenopathy, JVD, or bruits. LUNGS: He has some crackles at both bases, right greater than left. CARDIAC: S1, S2 regular without murmur. ABDOMEN: Soft, nontender, and nondistended. EXTREMITIES: No clubbing, cyanosis, or edema. LABORATORY DATA: Sodium 140, potassium 4.8, chloride 107, CO2 of 20, BUN 69, creatinine 2.4, glucose 77. His troponin is 1.006. CPK is 304. BNP 1256. PH 7.48, pCO2 of 29, PO2 of 56 on 4 L nasal cannula. White blood cell count 6.5, hematocrit 35.8, and platelet count 135. His x-ray shows bilateral infiltrative changes, right greater than left. ASSESSMENT: Acute hypoxic respiratory failure. Initially, I thought he probably had pneumonia but looking at his blood pressure trend and his elevated BNP, I am thinking now more that this could be congestive heart failure. At worse, he could have some semblance of both. RECOMMENDATIONS: 1. I would recommend adding Cleocin to his antibiotics, because of the suspicion of aspiration. 2. He needs to be in the CCU for the time being. 3. Status is critical. I would hold off on oral diet at this time as he could get worse and needs intubated. I have added Protonix for GI prophylaxis, enoxaparin for DVT prophylaxis. We will check an echocardiogram. Job ID: [id number] [facility]
--- NOTE | 2018-05-13 01:30 | HP ---
PRIMARY CARE PHYSICIAN: Dr. Anibal Stark. CHIEF COMPLAINT: Cough and shortness of breath. HISTORY OF PRESENT ILLNESS: Mr. Madrigal is a pleasant 88-year-old male, who had presented to [facility] with cough and shortness of breath over the last 2 to 3 days. He states he has a past medical history of CAD, status post CABG 20 years ago, hyperlipidemia, hypertension, chronic kidney disease stage 4, and chronic CHF. He states over the last week he had developed a cough, that has been progressively getting worse for the last 2 to 3 days. He states he saw his primary care physician for what seemed like cellulitis on his nose and face about 4 days ago and started on Bactrim. He states he was overall improving; however, his cough and shortness of breath continued to worsen. Upon arrival to the ED, he was noticed to be slightly fluid overloaded, chest x-ray was obtained, which showed findings suspicious for pneumonia. He was started on IV azithromycin and ceftriaxone in the ED, where he received one dose of each. He was also complaining of abdominal pain with bloating along with no bowel movement in 1 week, 2-view abdomen x-ray revealed evidence for constipation. He had received 10 mg rectal Dulcolax and magnesium citrate 1.745 g orally. After this, he had proceeded to vomit. After about an hour, he had a large bowel movement in the emergency department and his abdominal pain improved. However, over the course of his ED visit, he had became more short of breath and had required oxygen via nasal cannula. He was titrated up to 6 L and O2 sat is about 88% to 89%. He became quite tachycardic and had increased work of breathing. Therefore, he was started on rebreather, ABGs were obtained and it was found that his pO2 was 56.2, pCO2 was 29.3, pH 7.48, on 4 L via nasal cannula. It was determined that the patient would require an inpatient admission to the [facility] for further evaluation and would be placed on BiPAP and closely monitored with further management pending the pulmonology and ICU team. REVIEW OF SYSTEMS: All other review of systems is negative unless mentioned in the HPI. PAST MEDICAL HISTORY: Cerebrovascular disease; hyperlipidemia; hypertension; coronary artery disease, status post CABG 20 years ago; degenerative joint disease; chronic kidney disease, stage 4; history of prostate cancer; chronic CHF. PAST SURGICAL HISTORY: Prostatectomy in 1991, hernia repair x4, right total hip arthroplasty, skin cancer removal, coronary artery bypass graft x3 in 1996, right carotid endarterectomy in 2004, left total knee replacement in 2000, nerve transposition in right elbow, bilateral cataract replacement, and appendectomy. HOME MEDICATIONS: 1. Amlodipine 10 mg oral daily. 2. Atorvastatin 20 mg oral daily. 3. Aspirin 325 mg oral daily. 4. Ferrous sulfate 325 mg oral daily. 5. Folic acid 1 mg oral daily. 6. Prilosec 20 mg oral daily. 7. Vitamin D3 2000 units daily. 8. Centrum Ultra Men's multivitamin once daily. 9. Tramadol 50 mg oral as needed for pain. 10. Bactrim DS oral two times daily, that he is taking for cellulitis. ALLERGIES: CODEINE, PENICILLINS. FAMILY HISTORY: Noncontributory. SOCIAL HISTORY: Denies any alcohol, tobacco or illicit drug use. PHYSICAL EXAMINATION: VITAL SIGNS: Blood pressure 155/78, pulse 84, and respirations 21. GENERAL: The patient is awake, alert, and oriented x3. Currently on BiPAP. HEENT: Normocephalic and atraumatic. Pupils equal, round, and reactive to light. Extraocular muscles intact. Moist mucous membranes noted. Oropharynx is clear without exudates or erythema. NECK: Soft and supple. No JVD. No thyromegaly. No carotid bruits noted. Trachea midline. LUNGS: Coarse breath sounds noted on the right. Clear to auscultation on the left. Symmetric chest excursion and expansion. CARDIOVASCULAR: Positive S1 and S2. Regular rate and rhythm. Positive 2/6 systolic murmur noted. ABDOMEN: Soft, nontender, and nondistended. Bowel sounds present. No rebound, no rigidity, no guarding. EXTREMITIES: Moves all extremities equal. Strength 5+ bilaterally in upper and lower extremities. No cyanosis. No clubbing. No edema noted. SKIN: Warm, dry, and intact. No rashes. No lesions. NEUROLOGIC: Cranial nerves 2 through 12 grossly intact. No focal deficits noted. Strength 5+ bilaterally in upper and lower extremities. LABORATORY DATA: WBC 6.5, RBC 3.9, hemoglobin 12.0, and platelet 135. Sodium 140, potassium 4.8, anion gap 18, BUN 69, creatinine 2.43, and estimated GFR 25. BNP 1256.1. Troponin 0.217, 0.266. CK-MB 4.6. DIAGNOSTIC IMAGING: Abdomen x-ray showed evidence of constipation. PA and lateral chest showed findings suspicious for pneumonia with patchy consolidation in the right upper lobe. ASSESSMENT AND PLAN: 1. Pneumonia, suspicion for aspiration pneumonia with recent episode of vomiting. We will place n.p.o., discontinue IV Rocephin and azithromycin and place on IV vancomycin and cefepime with pharmacy to dose. Consult Pulmonary Services, check ABG. Place the patient on BiPAP and transfer to [facility] for further monitoring and management. 2. Acute on chronic congestive heart failure, and give IV Lasix 40 mg x1 dose, obtain echocardiogram to assess cardiac status. We will also consider Cardiology Services consultation based on clinical findings and the patient's progress. 3. Elevated troponin, this could likely be secondary to his acute on chronic CHF and/or chronic kidney disease. Troponin was found to be elevated at 0.2, we will order a recheck and continue to monitor. The patient is currently asymptomatic at this time. 4. Acute on chronic kidney disease, stage 4. Continue to monitor. Hold all nephrotoxic medications and dose antibiotics accordingly. Recheck BMP in the morning. We will also consider consultation to Nephrology Services if needed. 5. Hypertension. Due to the patient's risk of aspiration, we will make n.p.o. and hold home medications at this time, place IV antihypertensive regimen as needed for an elevated blood pressure. 6. Deep vein thrombosis and gastrointestinal prophylaxis. 7. Code status, full code, family will have a meeting to discuss this further, but we will keep the patient full code for now. 8. Plan to admit the patient to [facility] and start on BiPAP, he may require intubation if not improving. We will recheck blood gas while on BiPAP and further management per Pulmonology team. Job ID: [id number]
[2018-05-13] MEDS ORDERED: Cefepime 1 GM in Sodium Chloride 0.9% 100 ML IVPB SCH ×2 (02:00→20:00)
[2018-05-13] MEDS ORDERED: Cefepime 2 GM in Sodium Chloride 0.9% 100 ML IVPB SCH (02:00)
[2018-05-13 03:23] VITALS: BMI 23.3
[2018-05-13 05:03] LABS: Anion Gap 15 mmol/L (10-20); BUN (Urea Nitrogen) 61 mg/dL (8.4-25.7); Calc. Creatinine Clearance 20 mL/min (70-130); Carbon Dioxide 23 mmol/L (23-31); Chloride 105 mmol/L (98-107); Estimated GFR-MDRD 26; Glucose 91 mg/dL (83-110); Potassium 4.6 mmol/L (3.5-5.1); Sodium 138 mmol/L (136-145)
[2018-05-13 05:25] LABS: #Eosinphils 0.1 thou/uL (0.0-0.7); #Lymphocytes 0.5 thou/uL (1.20-3.40); #Monocytes 0.4 thou/uL (0.11-0.59); #Neutrophils 4.3 thou/uL (1.40-6.50); %Eosinophils 1.7 % (0.0-10.0); %Lymphocytes 9.3 % (21.0-51.0); %Monocytes 8.1 % (0.0-10.0); %Neutrophils 80.9 % (42.0-75.0); Hemoglobin 11.5 g/dL (14.0-18.0); Mean Corpuscular HGB CONC 31.1 g/dL (32.0-36.0); Mean Corpuscular Hemoglobin 28.6 pg (27.0-31.0); Mean Corpuscular Volume 91.7 fL (78.0-98.0); Mean Platelet Volume 9.7 fL (7.4-10.4); Platelet Count 111 thou/uL (130-400); Platelet Morphology Comment Appears Decreased; RBC Distribution Width 12.5 % (11.5-14.5); RBC Morphology Normal; Red Blood Cell (RBC) Count 4.04 mill/uL (4.70-6.10); White Blood Cell (WBC) Count 5.3 thou/uL (4.8-10.8)
[2018-05-13] MEDS: Clindamycin/D5W 600 MG in Premix Bag 1 BAG IVPB SCH ×3 (05:45→21:31)
--- NOTE | 2018-05-13 08:14 | RAD ---
AP CHEST: Date: 05-13-18 Comparison: 04-01-16 FINDINGS: AP chest demonstrates sternotomy wires seen. Ectasia of the aorta and calcification of the aorta is seen. There is interval development of airspace opacity in the right upper lobe concerning for right upper lobe pneumonia. There is some volume loss of the right upper lobe. IMPRESSION: Right upper lobe opacity concerning for an area of right upper lobe pneumonia. Follow up films to res olution recommended. POS: [facility]
[2018-05-13] MEDS ORDERED: Furosemide 40 MG/4 ML VIAL IVP SCH (08:15)
[2018-05-13] MEDS: Pantoprazole 40 MG VIAL IVP SCH (08:36)
[2018-05-13] MEDS: Ferrous Sulfate 325 MG TAB PO SCH (08:37)
[2018-05-13 08:44] LABS: Troponin I 3.264 ng/mL (< 0.028)
[2018-05-13] MEDS ORDERED: Aspirin 300 MG Suppository PR SCH (09:00)
[2018-05-13] MEDS ORDERED: Enoxaparin Sodium 30 MG/0.3 ML SYRINGE SC SCH (09:00)
[2018-05-13] MEDS ORDERED: Azithromycin 250 MG TAB PO SCH (09:00)
[2018-05-13] MEDS ORDERED: cefTRIAXone\\ROCEPHIN 2 GM in Sodium Chloride 0.9% 100 ML IVPB SCH (09:00)
[2018-05-13] MEDS ORDERED: Prevnar 13-Val Conj/PF 0.5 ML SYRINGE IM ONE (09:00)
[2018-05-13] MEDS ORDERED: Heparin 25,000 units/D5W 500 ML IVPB SCH (09:15)
[2018-05-13] MEDS ORDERED: Heparin 10,000 UNITS/ 10 ML VIAL SLOW IVP SCH (09:15)
--- NOTE | 2018-05-13 09:29 | PRG ---
DATE OF SERVICE: 05/13/2018 SUBJECTIVE: He remains on noninvasive ventilation. He looks better than when I saw him in the ER yesterday. OBJECTIVE: VITAL SIGNS: Temperature is 100.2, pulse 72, blood pressure 153/68, and respiratory rate 18. His minute ventilation is about 28 L/minute on the BiPAP. Intake since admission 350. Output was all quantitated in the diaper, so we do not know the exact amount. HEENT: Unremarkable. NECK: No JVD. LUNGS: Fairly clear. CARDIAC: Could not be examined because he is getting an echo. ABDOMEN: Soft. EXTREMITIES: No edema. LABORATORY DATA: Sodium 138, potassium 4.6, chloride 105, CO2 of 23, BUN 61, creatinine 2.3, and glucose 91. BNP down to 892. White blood cell count 5.3, hematocrit 37, and platelet count 111. His chest x-ray shows a persistent right upper lobe infiltrate. ASSESSMENT: 1. Pneumonia - possibly aspiration. 2. Obstipation at the time of admission. 3. Elevated BNP. PLAN: 1. Await results of the echo from this morning. 2. Probably give him another dose of diuretics. Continue the antibiotics and hopefully wean off the BiPAP. 3. Go ahead and start him on a diet. Job ID: [id number]
[2018-05-13 09:43] LABS: Hemoglobin 11.1 g/dL (14.0-18.0); Platelet Count 102 thou/uL (130-400)
[2018-05-13] MEDS: Aspirin 325 MG TAB PO SCH (09:44)
[2018-05-13] MEDS: Acetaminophen 325 MG TAB PO PRN (09:44)
--- NOTE | 2018-05-13 19:20 | PDOC.PN ---
- Subjective Encounter Start Date: 05/13/18 Encounter Start Time: 09:00 Subjective: pt up in bed feels much better today - Objective Resuscitation Status - Order Detail: 05/12/18 16:15 Resuscitation Status Routine Co-Sign Provider: Resuscitation Status: FULL: Full Resuscitation Vital Signs & Weight: Vital Signs (12 hours) Temp Pulse Pulse BP BP Pulse Ox 05/13/18 16:00 97.9 F 05/13/18 12:00 99.0 F 05/13/18 10:38 76 70 114/66 127/61 05/13/18 08:30 99 05/13/18 08:00 100.8 F H 100 Weight Admit Weight 148 lb 9.465 oz Weight 146 lb 2.664 oz Most Recent Monitor Data Heart Rate from ECG 67 NIBP 117/62 NIBP BP-Mean 80 Respiration from ECG 22 SpO2 93 I&O: 05/12/18 05/13/18 05/14/18 06:59 06:59 06:59 Intake Total 350 1764 Output Total 3 4 Balance 347 1760 Result Diagrams: 05/13/18 09:18 05/13/18 04:00 Phys Exam - Physical Examination Neck: no nodes, no JVD, supple, full ROM mild rhonchi all over Cardiovascular: RRR, no significant murmur, no rub, gallop, irregular Gastrointestinal: soft, non-tender, no distention, positive bowel sounds Dx/Plan (1) Acute respiratory failure with hypoxia Code(s): J96.01 - ACUTE RESPIRATORY FAILURE WITH HYPOXIA Status: Acute (2) Pneumonia Code(s): J18.9 - PNEUMONIA, UNSPECIFIED ORGANISM Status: Acute (3) HTN (hypertension) Code(s): I10 - ESSENTIAL (PRIMARY) HYPERTENSION Status: Acute Qualifiers: Hypertension type: essential hypertension Qualified Code(s): I10 - Essential (primary) hypertension (4) Dyslipidemia Code(s): E78.5 - HYPERLIPIDEMIA, UNSPECIFIED Status: Acute Comment: Continue Lipitor 80mg hs - Plan pt off bipap, on oxygen -: will continue abx for now -: heparin stated on pt, will consult cardiology for elevated trops -: echo ef of 45-50% * . Review of Systems - Review of Systems Respiratory: negative: Cough, Dry, Shortness of Breath, Hemoptysis, SOB with Excertion, Pleuritic Pain, Sputum, Wheezing Cardiovascular: negative: chest pain, palpitations, orthopnea, paroxysmal nocturnal dyspnea, edema, light headedness, other Gastrointestinal: negative: Nausea, Vomiting, Abdominal Pain, Diarrhea, Constipation, Melena, Hematochezia, Other - Medications/Allergies Allergies/Adverse Reactions: Allergies Allergy/AdvReac Type Severity Reaction Status Date / Time Penicillins Allergy Mild Verified 05/13/18 03:07 codeine Allergy Verified 05/13/18 03:07 Medications: Current Medications Acetaminophen (Tylenol) 650 mg PO Q4H PRN PRN Reason: Headache/Fever/Mild Pain (1-3) Last Admin: 05/13/18 09:44 Dose: 650 mg Albuterol/Ipratropium (Duoneb) 3 ml NEB Q4H PRN PRN Reason: SOB &/or Wheezing Amlodipine Besylate (Norvasc) 10 mg PO [facility] Last Admin: 05/12/18 21:00 Dose: Not Given Aspirin (Aspirin) 325 mg PO DAILY [facility] Last Admin: 05/13/18 09:44 Dose: 325 mg Atorvastatin Calcium (Lipitor) 20 mg PO [facility] Last Admin: 05/12/18 21:00 Dose: Not Given Ferrous Sulfate (Feosol) 325 mg PO [facility] Last Admin: 05/13/18 08:37 Dose: 325 mg Heparin Sodium (Porcine) (Heparin 1,000 Units/Ml (10 Ml)) 0 units SLOW IVP ASDIR [facility]; Protocol Vancomycin HCl 1 gm/ Device 200 mls @ 200 mls/hr IVPB 1900 [facility] Clindamycin Phosphate/Dextrose (600 mg/ Device) 50 mls @ 100 mls/hr IVPB Q8HR [facility] Last Admin: 05/13/18 15:42 Dose: 50 mls Cefepime HCl 1 gm/ Sodium (Chloride) 100 mls @ 200 mls/hr IVPB 0200 [facility] Heparin Sodium/Dextrose (Heparin 25,000 Units/D5w 500 Ml) 500 mls @ 0 mls/hr IVPB INF [facility]; Protocol Miscellaneous Medication (Pharmacy To Dose) 1 each IVPB DAILYPRN PRN PRN Reason: LABS Ccu Electrolyte (Replacement Protocol) 0 each FS PRN PRN PRN Reason: FOR ELECTROLYTE REPLACEMENT Ondansetron HCl (Zofran Odt) 4 mg PO Q6H PRN PRN Reason: Nausea/Vomiting Ondansetron HCl (Zofran) 4 mg IVP Q6H PRN PRN Reason: Nausea/Vomiting Pantoprazole Sodium (Protonix) 40 mg IVP DAILY [facility] Last Admin: 05/13/18 08:36 Dose: 40 mg
[2018-05-13] MEDS: Amlodipine 10 MG TAB PO SCH (21:31)
[2018-05-13] MEDS: Atorvastatin Calcium 20 MG TAB PO SCH (21:31)
[2018-05-14 00:17] LABS: Vancomycin, Random 10.1 ug/mL (See Comment)
--- NOTE | 2018-05-14 00:57 | CON ---
DATE OF CONSULTATION: HISTORY OF PRESENT ILLNESS: Mr. Madrigal is an 88-year-old white male, admitted with pneumonia and increased shortness of breath. In July of 1996, he underwent CABG x3 with PAIGE to LAD and vein graft to the first diagonal and obtuse marginal by Dr. Elliott. He was initially followed by [facility]; however, he is now seen by Dr. Simpson. Last echo was in March 2016, which revealed ejection fraction of 55% to 60% with aortic valvular sclerosis. He was last seen in the office on March 20, 2018. He denied any chest discomfort or shortness of breath. He now is admitted with increased cough and shortness of breath for the last 2 to 3 days. He denies any fever at home. He denies any significant chest discomfort. He was somewhat hypoxic in the emergency room with O2 saturations in the high 80s. PH was 7.48, pCO2 of 29.3, pO2 of 56.2. He has been given antibiotics and admitted for further evaluation. PAST MEDICAL HISTORY: Coronary artery disease, hypertension, hyperlipidemia, chronic kidney disease, prostate cancer, history of congestive heart failure, cerebrovascular disease. OPERATIONS: CABG, prostatectomy in 1991, hernia repair, right total hip replacement, right carotid endarterectomy, left total knee replacement, nerve transposition in the right elbow, bilateral cataract surgery, and appendectomy. MEDICATIONS: Include, 1. Atorvastatin 40 mg daily. 2. Aspirin 325 daily. 3. Amlodipine 10 mg daily. 4. Ferrous sulfate 325 daily. 5. Folic acid 1 mg daily. 6. Prilosec 20 mg daily. 7. Vitamin D3. 8. Centrum Ultra Men's multivitamin daily. 9. Bactrim DS b.i.d. 10. Tramadol. ALLERGIES: 1. CODEINE. 2. PENICILLIN. SOCIAL HISTORY: He does not smoke or drink. REVIEW OF SYSTEMS: A 12-point review of systems is, otherwise, unremarkable. PHYSICAL EXAMINATION: VITAL SIGNS: Blood pressure 117/62, pulse of 67. HEENT: PERRL. NECK: Supple. CHEST: Reveals decreased breath sounds in right upper lobe. CARDIAC: S1 and S2 normal without any S3, S4, or murmurs. ABDOMEN: Normal bowel sounds without tenderness or organomegaly. EXTREMITIES: Revealed no clubbing, cyanosis, or edema. NEUROLOGICAL: Grossly intact. SKIN: Warm and dry. LABORATORY DATA: EKG revealed normal sinus rhythm with left axis deviation, right bundle-branch block. Echocardiogram revealed mild left ventricular dysfunction with ejection fraction 40% to 45%, evidence for diastolic dysfunction, moderate left atrial enlargement, mild mitral regurgitation, mild aortic stenosis, mild tricuspid regurgitation, mild pulmonic regurgitation. Hemoglobin 11.1, hematocrit 32.9, platelets 102,000. PTT 37.3. Sodium 138, potassium 4.6, chloride 105, carbon dioxide 23, BUN 61, creatinine 2.38. Troponin I is up to 3.264. BNP 892.5. CK 304. IMPRESSION: 1. Probable demand ischemia from pneumonia as well as renal insufficiency. 2. Right upper lobe pneumonia. 3. Status post coronary artery bypass graft. 4. Hypertension. 5. Hypercholesterolemia. 6. History of cerebrovascular disease. 7. Ischemic cardiomyopathy, EF 40-45%. PLAN: The patient will continue on IV antibiotics and we will continue to follow this patient with you. He has had a drop in his ejection fraction over the last 2 to 3 years. Job ID: [id number] [facility]
[2018-05-14] MEDS ORDERED: Vancomycin HCl 750 MG in Sodium Chloride 0.9% 250 ML 250 ML IVPB SCH (01:00)
[2018-05-14] MEDS ORDERED: Cefepime 1 GM in Sodium Chloride 0.9% 100 ML IVPB SCH (02:00)
[2018-05-14 05:54] LABS: #Eosinphils 0.2 thou/uL (0.0-0.7); #Lymphocytes 0.7 thou/uL (1.20-3.40); #Monocytes 0.3 thou/uL (0.11-0.59); #Neutrophils 2.7 thou/uL (1.40-6.50); %Basophils 0.1 % (0.0-1.0); %Eosinophils 4.7 % (0.0-10.0); %Lymphocytes 17.7 % (21.0-51.0); %Monocytes 8.2 % (0.0-10.0); %Neutrophils 69.3 % (42.0-75.0); Hemoglobin 10.7 g/dL (14.0-18.0); Mean Corpuscular HGB CONC 33.3 g/dL (32.0-36.0); Mean Corpuscular Hemoglobin 30.4 pg (27.0-31.0); Mean Corpuscular Volume 91.4 fL (78.0-98.0); Mean Platelet Volume 9.2 fL (7.4-10.4); Platelet Count 96 thou/uL (130-400); RBC Distribution Width 12.3 % (11.5-14.5); Red Blood Cell (RBC) Count 3.51 mill/uL (4.70-6.10); White Blood Cell (WBC) Count 3.9 thou/uL (4.8-10.8)
[2018-05-14 06:01] LABS: Anion Gap 12 mmol/L (10-20); BUN (Urea Nitrogen) 59 mg/dL (8.4-25.7); Calc. Creatinine Clearance 20 mL/min (70-130); Calcium 8.5 mg/dL (7.8-10.44); Carbon Dioxide 25 mmol/L (23-31); Chloride 105 mmol/L (98-107); Estimated GFR-MDRD 27; Glucose 83 mg/dL (83-110); Potassium 4.1 mmol/L (3.5-5.1); Sodium 138 mmol/L (136-145)
[2018-05-14] MEDS: Clindamycin/D5W 600 MG in Premix Bag 1 BAG IVPB SCH (06:10)
[2018-05-14] MEDS: Ferrous Sulfate 325 MG TAB PO SCH (08:20)
[2018-05-14] MEDS: Aspirin 325 MG TAB PO SCH (08:20)
[2018-05-14] MEDS: Acetaminophen 325 MG TAB PO PRN (08:21)
[2018-05-14] MEDS: Pantoprazole 40 MG VIAL IVP SCH (08:21)
--- NOTE | 2018-05-14 12:26 | PRG ---
DATE OF SERVICE: 05/14/2018 SUBJECTIVE: Mr. Madrigal is doing well. He is up in a chair. Has no complaints. OBJECTIVE: VITAL SIGNS: Temperature 98.7, pulse 64, respirations 16, O2 saturation 97%, and blood pressure 118/61. HEENT: Unremarkable. NECK: No JVD. CHEST: Clear. CARDIAC: S1 and S2. Regular. ABDOMEN: Soft. EXTREMITIES: No edema. LABORATORY DATA: White blood cell count 3.9, hematocrit 32.1, and platelet count 96. Sodium 138, potassium 4.1, BUN 59, creatinine 2.3. ASSESSMENT: 1. Aspiration pneumonia-improved to the point where he is now off oxygen-so far cultures are stable. 2. Depressed ejection fraction 40% to 45% with elevated BNP at the time of admission. PLAN: I will change him over to oral antibiotics. He is probably stable to go home from pulmonary standpoint, but may need further cardiac testing. Job ID: [id number]
--- NOTE | 2018-05-14 15:46 | PDOC.PN ---
- Subjective Encounter Start Date: 05/14/18 Encounter Start Time: 11:15 Subjective: pt up in bed feels better today - Objective Resuscitation Status - Order Detail: 05/12/18 16:15 Resuscitation Status Routine Co-Sign Provider: Resuscitation Status: FULL: Full Resuscitation Vital Signs & Weight: Vital Signs (12 hours) Temp Pulse Pulse Pulse Resp BP BP 05/14/18 15:14 98 F 63 16 05/14/18 13:10 65 65 152/65 H 133/61 05/14/18 11:27 98 F 64 16 05/14/18 07:26 98.6 F 74 16 05/14/18 03:52 99 F 67 16 BP BP Pulse Ox 05/14/18 15:14 145/67 H 97 05/14/18 13:10 05/14/18 11:27 118/61 97 05/14/18 07:26 161/72 H 97 05/14/18 03:52 143/66 H 96 Weight Admit Weight 148 lb 9.465 oz Weight 158 lb 1.6 oz Most Recent Monitor Data Heart Rate from ECG 67 NIBP 117/62 NIBP BP-Mean 80 Respiration from ECG 22 SpO2 93 I&O: 05/13/18 05/14/18 05/15/18 06:59 06:59 06:59 Intake Total 350 2289 Output Total 3 4 Balance 347 2285 Result Diagrams: 05/14/18 04:55 05/14/18 04:55 Phys Exam - Physical Examination Respiratory: no wheezing, no rales, no rhonchi, wheezing present, clear to auscultation bilateral Cardiovascular: RRR, no significant murmur, no rub, gallop, irregular Gastrointestinal: soft, non-tender, no distention, positive bowel sounds Musculoskeletal: no edema, pulses present, edema present Dx/Plan (1) Acute respiratory failure with hypoxia Code(s): J96.01 - ACUTE RESPIRATORY FAILURE WITH HYPOXIA Status: Acute (2) Pneumonia Code(s): J18.9 - PNEUMONIA, UNSPECIFIED ORGANISM Status: Acute (3) HTN (hypertension) Code(s): I10 - ESSENTIAL (PRIMARY) HYPERTENSION Status: Acute Qualifiers: Hypertension type: essential hypertension Qualified Code(s): I10 - Essential (primary) hypertension (4) Dyslipidemia Code(s): E78.5 - HYPERLIPIDEMIA, UNSPECIFIED Status: Acute Comment: Continue Lipitor 80mg hs - Plan will continue abx for now -: PT to work with pt -: possible discharge in am -: echo indicated depressed ef -: will add coreg for bp, no magdiel due to mavrel * . Review of Systems - Review of Systems Respiratory: negative: Cough, Dry, Shortness of Breath, Hemoptysis, SOB with Excertion, Pleuritic Pain, Sputum, Wheezing Cardiovascular: negative: chest pain, palpitations, orthopnea, paroxysmal nocturnal dyspnea, edema, light headedness, other Gastrointestinal: negative: Nausea, Vomiting, Abdominal Pain, Diarrhea, Constipation, Melena, Hematochezia, Other - Medications/Allergies Allergies/Adverse Reactions: Allergies Allergy/AdvReac Type Severity Reaction Status Date / Time Penicillins Allergy Mild Verified 05/13/18 03:07 codeine Allergy Verified 05/13/18 03:07 Medications: Current Medications Acetaminophen (Tylenol) 650 mg PO Q4H PRN PRN Reason: Headache/Fever/Mild Pain (1-3) Last Admin: 05/14/18 08:21 Dose: 650 mg Albuterol/Ipratropium (Duoneb) 3 ml NEB Q4H PRN PRN Reason: SOB &/or Wheezing Amlodipine Besylate (Norvasc) 10 mg PO [facility] Last Admin: 05/13/18 21:31 Dose: 10 mg Aspirin (Aspirin) 325 mg PO DAILY [facility] Last Admin: 05/14/18 08:20 Dose: 325 mg Atorvastatin Calcium (Lipitor) 20 mg PO [facility] Last Admin: 05/13/18 21:31 Dose: 20 mg Cefdinir (Omnicef) 600 mg PO DAILY [facility] Ferrous Sulfate (Feosol) 325 mg PO [facility] Last Admin: 05/14/18 08:20 Dose: 325 mg Ccu Electrolyte (Replacement Protocol) 0 each FS PRN PRN PRN Reason: FOR ELECTROLYTE REPLACEMENT Ondansetron HCl (Zofran Odt) 4 mg PO Q6H PRN PRN Reason: Nausea/Vomiting Ondansetron HCl (Zofran) 4 mg IVP Q6H PRN PRN Reason: Nausea/Vomiting Pantoprazole Sodium (Protonix) 40 mg IVP DAILY [facility] Last Admin: 05/14/18 08:21 Dose: 40 mg
[2018-05-14] MEDS: Carvedilol 6.25 MG TAB PO SCH (16:39)
[2018-05-14] MEDS: Atorvastatin Calcium 20 MG TAB PO SCH (20:05)
[2018-05-14] MEDS: Amlodipine 10 MG TAB PO SCH (20:06)
[2018-05-15] MEDS ORDERED: Vancomycin HCl 1 GM in Premix Bag 1 BAG IVPB SCH (01:00)
[2018-05-15 06:26] LABS: Anion Gap 14 mmol/L (10-20); BUN (Urea Nitrogen) 42 mg/dL (8.4-25.7); Calc. Creatinine Clearance 26 mL/min (70-130); Calcium 8.8 mg/dL (7.8-10.44); Carbon Dioxide 22 mmol/L (23-31); Chloride 106 mmol/L (98-107); Estimated GFR-MDRD 31; Glucose 84 mg/dL (83-110); Potassium 3.9 mmol/L (3.5-5.1); Sodium 138 mmol/L (136-145)
[2018-05-15 06:28] LABS: #Eosinphils 0.3 thou/uL (0.0-0.7); #Lymphocytes 1.2 thou/uL (1.20-3.40); #Monocytes 0.5 thou/uL (0.11-0.59); #Neutrophils 3.1 thou/uL (1.40-6.50); %Basophils 0.5 % (0.0-1.0); %Eosinophils 5.4 % (0.0-10.0); %Lymphocytes 22.9 % (21.0-51.0); %Monocytes 10.3 % (0.0-10.0); %Neutrophils 60.9 % (42.0-75.0); Hemoglobin 11.4 g/dL (14.0-18.0); Mean Corpuscular Hemoglobin 29.2 pg (27.0-31.0); Mean Corpuscular Volume 91.1 fL (78.0-98.0); Mean Platelet Volume 8.9 fL (7.4-10.4); Platelet Count 115 thou/uL (130-400); RBC Distribution Width 12.3 % (11.5-14.5); Red Blood Cell (RBC) Count 3.91 mill/uL (4.70-6.10)
[2018-05-15 08:49] LABS: Hemoglobin 12.1 g/dL (14.0-18.0); Platelet Count 133 thou/uL (130-400)
[2018-05-15 09:26] LABS: Troponin I 1.459 ng/mL (< 0.028)
[2018-05-15] MEDS: Pantoprazole 40 MG VIAL IVP SCH (10:09)
[2018-05-15] MEDS: Acetaminophen 325 MG TAB PO PRN (10:10)
[2018-05-15] MEDS: Carvedilol 6.25 MG TAB PO SCH ×3 (10:10→17:25)
[2018-05-15] MEDS: Folic Acid 1 MG TAB PO SCH (10:11)
[2018-05-15] MEDS: Ferrous Sulfate 325 MG TAB PO SCH (10:11)
[2018-05-15] MEDS: Aspirin 325 MG TAB PO SCH (10:11)
[2018-05-15] MEDS: Sodium Chloride 0.9% 10 ML ONE ×2 (10:11→10:12)
[2018-05-15] MEDS: Cefdinir 300 MG CAP PO SCH (10:11)
--- NOTE | 2018-05-15 11:04 | PRG ---
DATE OF SERVICE: 05/15/2018 SUBJECTIVE: He is awake, alert, sitting up in a chair, looks to be doing well. OBJECTIVE: VITAL SIGNS: Temperature 98.2, pulse 65, blood pressure 120/58, and O2 saturation 96% on room air HEENT: Unremarkable. NECK: No JVD. CHEST: Clear. CARDIAC: S1 and S2, regular. ABDOMEN: Soft. EXTREMITIES: No edema. LABORATORY DATA: Hematocrit 38.5, and platelet count 133. Sodium 130, potassium 3.9, BUN 42, creatinine 2.0. Troponin 1.45. ASSESSMENT: 1. Status post acute respiratory failure related to aspiration. 2. Low ejection fraction. PLAN: The patient is ready for rehab from a Pulmonary standpoint. He is on oral antibiotic medication. No further Pulmonary recommendations and we will sign off. Please re-call if further assistance is needed. Job ID: [id number]
--- NOTE | 2018-05-15 15:15 | PDOC.PN ---
- Subjective Encounter Start Date: 05/15/18 Encounter Start Time: 10:30 Subjective: pt up in chair complains of generalized weakness - Objective Resuscitation Status - Order Detail: 05/12/18 16:15 Resuscitation Status Routine Co-Sign Provider: Resuscitation Status: FULL: Full Resuscitation Vital Signs & Weight: Vital Signs (12 hours) Temp Pulse Resp BP BP BP Pulse Ox 05/15/18 11:54 97.8 F 61 16 130/62 05/15/18 10:10 128/58 L 05/15/18 08:00 98.2 F 55 L 16 128/58 L 96 05/15/18 04:00 97.9 F 67 18 141/67 H 96 Weight Admit Weight 148 lb 9.465 oz Weight 160 lb 9 oz Most Recent Monitor Data Heart Rate from ECG 67 NIBP 117/62 NIBP BP-Mean 80 Respiration from ECG 22 SpO2 93 I&O: 05/14/18 05/15/18 05/16/18 06:59 06:59 06:59 Intake Total 2289 1440 Output Total 4 Balance 2285 1440 Result Diagrams: 05/15/18 08:22 05/15/18 05:32 Phys Exam - Physical Examination Neck: no nodes, no JVD, supple, full ROM Respiratory: no wheezing, no rales, no rhonchi, wheezing present, clear to auscultation bilateral Cardiovascular: RRR, no significant murmur, no rub, gallop, irregular Gastrointestinal: soft, non-tender, no distention, positive bowel sounds Dx/Plan (1) Acute respiratory failure with hypoxia Code(s): J96.01 - ACUTE RESPIRATORY FAILURE WITH HYPOXIA Status: Acute (2) Pneumonia Code(s): J18.9 - PNEUMONIA, UNSPECIFIED ORGANISM Status: Acute (3) HTN (hypertension) Code(s): I10 - ESSENTIAL (PRIMARY) HYPERTENSION Status: Acute Qualifiers: Hypertension type: essential hypertension Qualified Code(s): I10 - Essential (primary) hypertension (4) Dyslipidemia Code(s): E78.5 - HYPERLIPIDEMIA, UNSPECIFIED Status: Acute Comment: Continue Lipitor 80mg hs - Plan pt and family wants rehab, will consult for rehab screen -: will conitnue abx orally -: elevated trop due to demand ischemia per cardio -: pt has no chest pain. * . Review of Systems - Review of Systems Respiratory: negative: Cough, Dry, Shortness of Breath, Hemoptysis, SOB with Excertion, Pleuritic Pain, Sputum, Wheezing Cardiovascular: negative: chest pain, palpitations, orthopnea, paroxysmal nocturnal dyspnea, edema, light headedness, other Gastrointestinal: negative: Nausea, Vomiting, Abdominal Pain, Diarrhea, Constipation, Melena, Hematochezia, Other - Medications/Allergies Allergies/Adverse Reactions: Allergies Allergy/AdvReac Type Severity Reaction Status Date / Time Penicillins Allergy Mild Verified 05/13/18 03:07 codeine Allergy Verified 05/13/18 03:07 Medications: Current Medications Acetaminophen (Tylenol) 650 mg PO Q4H PRN PRN Reason: Headache/Fever/Mild Pain (1-3) Last Admin: 05/15/18 10:10 Dose: 650 mg Albuterol/Ipratropium (Duoneb) 3 ml NEB Q4H PRN PRN Reason: SOB &/or Wheezing Amlodipine Besylate (Norvasc) [address] [facility] Last Admin: 05/14/18 20:06 Dose: 10 mg Aspirin (Aspirin) 325 mg PO DAILY [facility] Last Admin: 05/15/18 10:11 Dose: 325 mg Atorvastatin Calcium (Lipitor) [address] [facility] Last Admin: 05/14/18 20:05 Dose: 20 mg Carvedilol (Coreg) 12.5 mg PO BID-[facility] Last Admin: 05/15/18 10:10 Dose: 12.5 mg Cefdinir (Omnicef) 300 mg PO DAILY [facility] Last Admin: 05/15/18 10:11 Dose: 300 mg Ferrous Sulfate (Feosol) 325 mg PO QA-[facility] Last Admin: 05/15/18 10:11 Dose: 325 mg Folic Acid (Folvite) 1 mg PO DAILY [facility] Last Admin: 05/15/18 10:11 Dose: 1 mg Ccu Electrolyte (Replacement Protocol) 0 each FS PRN PRN PRN Reason: FOR ELECTROLYTE REPLACEMENT Ondansetron HCl (Zofran Odt) 4 mg PO Q6H PRN PRN Reason: Nausea/Vomiting Ondansetron HCl (Zofran) 4 mg IVP Q6H PRN PRN Reason: Nausea/Vomiting Pantoprazole Sodium (Protonix) 40 mg PO DAILY [facility]
[2018-05-15] MEDS: Amlodipine 10 MG TAB PO SCH (21:00)
[2018-05-15] MEDS: Atorvastatin Calcium 20 MG TAB PO SCH (21:00)
[2018-05-16 05:45] LABS: #Basophils 0.1 thou/uL (0.0-0.2); #Eosinphils 0.3 thou/uL (0.0-0.7); #Lymphocytes 1.7 thou/uL (1.20-3.40); #Monocytes 0.7 thou/uL (0.11-0.59); #Neutrophils 3.2 thou/uL (1.40-6.50); %Basophils 1.1 % (0.0-1.0); %Eosinophils 4.9 % (0.0-10.0); %Lymphocytes 28.1 % (21.0-51.0); %Monocytes 11.9 % (0.0-10.0); %Neutrophils 53.9 % (42.0-75.0); Hemoglobin 11.3 g/dL (14.0-18.0); Mean Corpuscular HGB CONC 32.8 g/dL (32.0-36.0); Mean Corpuscular Hemoglobin 30.1 pg (27.0-31.0); Mean Corpuscular Volume 91.8 fL (78.0-98.0); Mean Platelet Volume 8.2 fL (7.4-10.4); Platelet Count 123 thou/uL (130-400); Red Blood Cell (RBC) Count 3.76 mill/uL (4.70-6.10)
[2018-05-16 06:06] LABS: Anion Gap 14 mmol/L (10-20); BUN (Urea Nitrogen) 51 mg/dL (8.4-25.7); Calc. Creatinine Clearance 23 mL/min (70-130); Calcium 8.9 mg/dL (7.8-10.44); Carbon Dioxide 24 mmol/L (23-31); Chloride 106 mmol/L (98-107); Estimated GFR-MDRD 28; Glucose 87 mg/dL (83-110); Potassium 4.4 mmol/L (3.5-5.1); Sodium 140 mmol/L (136-145)
[2018-05-16] MEDS ORDERED: Sodium Chloride 0.9% 10 ML ONE (08:36)
[2018-05-16] MEDS: Aspirin 325 MG TAB PO SCH (09:05)
[2018-05-16] MEDS: Acetaminophen 325 MG TAB PO PRN (09:05)
[2018-05-16] MEDS: Cefdinir 300 MG CAP PO SCH (09:06)
[2018-05-16] MEDS: Carvedilol 6.25 MG TAB PO SCH ×2 (09:06→17:52)
[2018-05-16] MEDS: Folic Acid 1 MG TAB PO SCH (09:07)
[2018-05-16] MEDS: Ferrous Sulfate 325 MG TAB PO SCH (09:07)
--- NOTE | 2018-05-16 14:50 | PDOC.PN ---
- Subjective Encounter Start Date: 05/16/18 Encounter Start Time: 09:15 Subjective: pt up in chair sleeping - Objective Resuscitation Status - Order Detail: 05/12/18 16:15 Resuscitation Status Routine Co-Sign Provider: Resuscitation Status: FULL: Full Resuscitation Vital Signs & Weight: Vital Signs (12 hours) Temp Pulse Resp BP BP Pulse Ox 05/16/18 09:06 137/65 05/16/18 08:00 95 05/16/18 07:52 98 F 57 L 16 137/65 92 L 05/16/18 04:00 98.9 F 60 16 136/65 96 Weight Admit Weight 148 lb 9.465 oz Weight 161 lb 2 oz Most Recent Monitor Data Heart Rate from ECG 67 NIBP 117/62 NIBP BP-Mean 80 Respiration from ECG 22 SpO2 93 I&O: 05/15/18 05/16/18 05/17/18 06:59 06:59 06:59 Intake Total 1440 250 360 Output Total 300 Balance 1440 -50 360 Result Diagrams: 05/16/18 05:29 05/16/18 05:29 Phys Exam - Physical Examination Respiratory: no wheezing, no rales, no rhonchi, wheezing present, clear to auscultation bilateral Cardiovascular: RRR, no significant murmur, no rub, gallop, irregular Gastrointestinal: soft, non-tender, no distention, positive bowel sounds Dx/Plan (1) Acute respiratory failure with hypoxia Code(s): J96.01 - ACUTE RESPIRATORY FAILURE WITH HYPOXIA Status: Acute (2) Pneumonia Code(s): J18.9 - PNEUMONIA, UNSPECIFIED ORGANISM Status: Acute (3) HTN (hypertension) Code(s): I10 - ESSENTIAL (PRIMARY) HYPERTENSION Status: Acute Qualifiers: Hypertension type: essential hypertension Qualified Code(s): I10 - Essential (primary) hypertension (4) Dyslipidemia Code(s): E78.5 - HYPERLIPIDEMIA, UNSPECIFIED Status: Acute Comment: Continue Lipitor 80mg hs - Plan family and pt wanted rehab, awaiting approval -: continue abx -: pt improving -: elevated trop due to demand ischemia * . Review of Systems - Review of Systems Respiratory: negative: Cough, Dry, Shortness of Breath, Hemoptysis, SOB with Excertion, Pleuritic Pain, Sputum, Wheezing Cardiovascular: negative: chest pain, palpitations, orthopnea, paroxysmal nocturnal dyspnea, edema, light headedness, other Gastrointestinal: negative: Nausea, Vomiting, Abdominal Pain, Diarrhea, Constipation, Melena, Hematochezia, Other - Medications/Allergies Allergies/Adverse Reactions: Allergies Allergy/AdvReac Type Severity Reaction Status Date / Time Penicillins Allergy Mild Verified 05/13/18 03:07 codeine Allergy Verified 05/13/18 03:07 Medications: Current Medications Acetaminophen (Tylenol) 650 mg PO Q4H PRN PRN Reason: Headache/Fever/Mild Pain (1-3) Last Admin: 05/16/18 09:05 Dose: 650 mg Albuterol/Ipratropium (Duoneb) 3 ml NEB Q4H PRN PRN Reason: SOB &/or Wheezing Amlodipine Besylate (Norvasc) 10 mg PO [facility] Last Admin: 05/15/18 21:00 Dose: 10 mg Aspirin (Aspirin) 325 mg PO [facility]ILY [facility] Last Admin: 05/16/18 09:05 Dose: 325 mg Atorvastatin Calcium (Lipitor) 20 mg PO [facility] Last Admin: 05/15/18 21:00 Dose: 20 mg Carvedilol (Coreg) 6.25 mg PO BID-[facility] Last Admin: 05/16/18 09:06 Dose: 6.25 mg Cefdinir (Omnicef) 300 mg PO [facility]ILY [facility] Last Admin: 05/16/18 09:06 Dose: 300 mg Ferrous Sulfate (Feosol) 325 mg PO QA-[facility] Last Admin: 05/16/18 09:07 Dose: 325 mg Folic Acid (Folvite) 1 mg PO [facility]ILY [facility] Last Admin: 05/16/18 09:07 Dose: 1 mg Ccu Electrolyte (Replacement Protocol) 0 each FS PRN PRN PRN Reason: FOR ELECTROLYTE REPLACEMENT Ondansetron HCl (Zofran Odt) 4 mg PO Q6H PRN PRN Reason: Nausea/Vomiting Ondansetron HCl (Zofran) 4 mg IVP Q6H PRN PRN Reason: Nausea/Vomiting Pantoprazole Sodium (Protonix) 40 mg PO DAILY [facility] Last Admin: 05/16/18 09:06 Dose: 40 mg
--- NOTE | 2018-05-16 17:01 | DIS ---
DATE OF ADMISSION: 05/12/2018 DATE OF DISCHARGE: 05/16/2018 DISCHARGE DIAGNOSES: As of the followin. Acute respiratory failure with hypoxia. 2. Pneumonia most likely aspiration. 3. Hypertension. 4. Dyslipidemia. 5. Elevated troponin. HOSPITAL COURSE: The patient is a very pleasant 88-year-old male, who initially presented to the hospital with complaints of shortness of breath. At this time, the patient also was constipated. The patient was given magnesium citrate in the ER, had a very large bowel movement, however, also got very nauseated and became very hypoxic. At this time, the patient was put on BiPAP and a blood gas was done, which indicated a pO2 of 56.2. The patient was seen by Pulmonary. The patient was transitioned from the BiPAP onto nasal cannula. The patient initially was put on broad-spectrum antibiotics to cover for aspiration pneumonia, which was transitioned down to Omnicef per Pulmonary. The patient did have an elevated troponin of 3.2. The patient, however, was clinically asymptomatic. EKG did not show any acute changes. Also, the patient was seen by Cardiology, who recommended an echocardiogram. Echocardiogram indicated a depressed EF from his prior echo. His current echo EF was 40% to 45% compared to his prior one, which was 50% to 55%. The patient continued to improve. Family wanted the patient to be going to a rehab center, so he was discharged to inpatient rehab. Of note, I did not start the patient on lisinopril because the patient's baseline creatinine is 1.8. In the hospital, he was 2.25. It had been improving since his admission, but very slowly. DISCHARGE MEDICATIONS: His discharge medications will be as of the following; 1. Tramadol 50 mg p.r.n. 2. Omeprazole 20 mg daily. 3. Folic acid one p.o. daily. 4. Atorvastatin 20 mg at bedtime. 5. Omnicef 300 mg for the next 3 days, a total of 7 days. 6. Carvedilol 6.25 mg p.o. b.i.d. 7. Aspirin 81 mg daily. 8. Atorvastatin 20 mg at bedtime. 9. Amlodipine 10 mg daily. 10. Vitamin D3 of 2000 units daily. PHYSICAL EXAMINATION: VITAL SIGNS: As of the following; temperature 98.0, heart rate 57, respiratory rate 16, oxygen saturation 92% on room air, and blood pressure 137/65. GENERAL: He is awake, alert, and oriented x3. Does not appear in any distress. CARDIOVASCULAR: S1 and S2 present. No murmurs, rubs, or gallops. ABDOMEN: Soft and nontender. Bowel sounds are present x2. EXTREMITIES: No edema. Pedal pulses are present x2. Again, the patient will be discharged to a rehab center. He will follow up with his pharmacy laboratory technician and his primary care doctor and also I have put in the additional comments that the patient needs his BMP to be checked, especially his urine to be followed and again, he was not started on lisinopril or GEETA due to his renal disease, which was acute. Job ID: [id number]
[2018-05-16] MEDS: Amlodipine 10 MG TAB PO SCH (20:32)
[2018-05-16] MEDS: Atorvastatin Calcium 20 MG TAB PO SCH (20:32)
[2018-05-16 20:34] VITALS: BP 173/78
[2018-05-16 20:44] VITALS: TEMP 97.8
--- NOTE | 2018-05-17 23:03 | EKG ---
Test Reason : Blood Pressure : / mmHG Vent. Rate : 088 BPM Atrial Rate : 088 BPM P-R Int : 114 ms QRS Dur : 162 ms QT Int : 424 ms P-R-T Axes : 000 214 137 degrees QTc Int : 513 ms Sinus rhythm with marked sinus arrhythmia Right bundle branch block Abnormal ECG Confirmed by FERNANDEZ MOE, ELVIA ([id number]), field map editor ANTHONY SEARS ([id number]) on 05/17/2018 11:02:56 PM Referred By: Confirmed By:ELVIA PRESLEY MD
== END 2018-05-16 21:34 | DRG 177 ==
LOC: ERS 10:03 → ERHOLD 13:45 → OBSVTOIN 18:47 → CCU 22:39 → 2NO 05-13 18:57
PROVIDERS: ADMIT Internal Medicine; ATTEND Internal Medicine
DX: J69.0 Pneumonitis due to inhalation of food and vomit (principal); I50.33 Acute on chronic diastolic (congestive) heart failure; J96.01 Acute respiratory failure with hypoxia; I13.0 Hypertensive heart and chronic kidney disease with heart failure and stage 1 through stage 4 chronic kidney disease, or unspecified chronic kidney disease; N18.4 Chronic kidney disease, stage 4 (severe); N17.9 Acute kidney failure, unspecified; K59.00 Constipation, unspecified; I25.10 Atherosclerotic heart disease of native coronary artery without angina pectoris; Z95.1 Presence of aortocoronary bypass graft; E78.00 Pure hypercholesterolemia, unspecified; I25.5 Ischemic cardiomyopathy
CPT/HCPCS: 36415; 71045; 71046; 74019; 80048; 80053; 80202; 82550; 82553; 82805; 83690; 83880; 84484; 85025; 85730; 87040; 87804; 93005; 93010; 93306; 94660; 94760; 96365; 96367; C9113; J0456; J0692; J0696; J1644; J1650; J1940; J2405; J3370; J3490; J7050

== ENCOUNTER 2018-07-14 11:31 | Inpatient (IN) | payer MEDICARE, OTHER ==
[2018-07-14] MEDS ORDERED: Morphine 2 MG/ML SYRINGE ONE (13:40)
--- NOTE | 2018-07-14 14:11 | RAD ---
3 VIEWS RIGHT FOOT: Date: 07/14/18 COMPARISON: None. HISTORY: Swelling and pain. FINDINGS: There is enthesophyte formation at the insertion of the Achilles tendon and origin of plantar aponeur osis. There is subchondral sclerosis involving the talar dome and calcaneus at the level of the subta lar joint, likely degenerative in nature. There is degenerative change involving the mid foot with duke int space narrowing and anterior osteophyte formation. There is also joint space narrowing and osteop hyte formation involving the first metatarsophalangeal joint. There is no displaced fracture or evidence of dislocation. IMPRESSION: Degenerative change. No acute osseous abnormality. POS: [facility]
[2018-07-14 14:38] LABS: #Eosinphils 0.2 thou/uL (0.0-0.7); #Lymphocytes 0.7 thou/uL (1.20-3.40); #Monocytes 0.9 thou/uL (0.11-0.59); #Neutrophils 5.3 thou/uL (1.40-6.50); %Basophils 0.5 % (0.0-1.0); %Eosinophils 2.3 % (0.0-10.0); %Lymphocytes 9.9 % (21.0-51.0); %Monocytes 12.9 % (0.0-10.0); %Neutrophils 74.4 % (42.0-75.0); Hemoglobin 11.2 g/dL (14.0-18.0); Mean Corpuscular HGB CONC 32.8 g/dL (32.0-36.0); Mean Corpuscular Volume 91.5 fL (78.0-98.0); Mean Platelet Volume 8.3 fL (7.4-10.4); Platelet Count 168 thou/uL (130-400); Red Blood Cell (RBC) Count 3.74 mill/uL (4.70-6.10); White Blood Cell (WBC) Count 7.2 thou/uL (4.8-10.8)
[2018-07-14 15:02] LABS: ALT (SGPT) 10 U/L (8-55); AST (SGOT) 19 U/L (5-34); Albumin 3.6 g/dL (3.4-4.8); Alkaline Phosphatase 72 U/L (40-150); Anion Gap 15 mmol/L (10-20); BUN (Urea Nitrogen) 44 mg/dL (8.4-25.7); Bilirubin, Total 0.6 mg/dL (0.2-1.2); Calc. Creatinine Clearance 0 mL/min (70-130); Calcium 9.7 mg/dL (7.8-10.44); Carbon Dioxide 23 mmol/L (23-31); Chloride 105 mmol/L (98-107); Estimated GFR-MDRD 33; Globulin 3.6 g/dL (2.4-3.5); Glucose 110 mg/dL (83-110); Potassium 4.4 mmol/L (3.5-5.1); Protein, Total 7.2 g/dL (5.8-8.1); Sodium 139 mmol/L (136-145)
[2018-07-14] MEDS ORDERED: Clindamycin/D5W 900 mg/50 ml Premix Bag ONE (16:06)
[2018-07-14 17:05] VITALS: BMI 23.9
[2018-07-14] MEDS: Morphine 2 MG/ML SYRINGE SLOW IVP PRN (17:39)
--- NOTE | 2018-07-14 18:18 | ULT ---
VENOUS DUPLEX SONOGRAM RIGHT LOWER EXTREMITY: History: Right leg pain and edema. FINDINGS: The right common femoral vein and greater saphenous junction, femoral, deep femoral, popliteal and po sterior tibial veins were evaluated. There is good color and spectral doppler flow, compression, and augmentation. IMPRESSION: No sonographic evidence of DVT within the right lower extremity. POS: [facility]
--- NOTE | 2018-07-15 00:02 | HP ---
CHIEF COMPLAINT: Right foot pain, swelling and redness. HISTORY OF PRESENT ILLNESS: The patient is an 88-year-old male, who presented to the emergency room with swelling, redness and pain in his right foot, which is going on for approximately a few days and gradually getting worse. He has not been treated for that on outpatient basis. Apparently, he had some cellulitis and pain before and he was treated and released home from where he was admitted for pneumonia and sent to the rehab. He spent 5 weeks in the rehab and sent home. He was taking antibiotics and the last dose of antibiotics was approximately 1 month ago. PAST MEDICAL HISTORY: Positive for: 1. Hyperlipidemia. 2. Hypertension. 3. History of prostate cancer. 4. Transient ischemic attack. PAST SURGICAL HISTORY: 1. Appendectomy. 2. Coronary artery bypass graft surgery. 3. Hernia repair x4. 4. Left hip replacement. 5. Prostatectomy. 6. Bilateral cataracts. 7. Bladder repair. 8. Multiple skin cancer removals. 9. Stenting of the right and left carotid arteries. ALLERGIES: PENICILLIN AND CODEINE. SOCIAL HISTORY: Apparently he drinks some alcohol every day. He denies any cigarette smoking and denies any illicit drug use. FAMILY HISTORY: Noncontributory. Surrogate decision maker, the patient's daughter, Cherry, and primary care physician Dr. Anibal Stark. REVIEW OF SYSTEMS: All 10 systems were reviewed and negative except for positive finding at HPI. PHYSICAL EXAMINATION: VITAL SIGNS: Blood pressure is 152/71, pulse is 72, respiratory rate is 20, temperature is 98.5. Pain is rated at 5. He is on room air 100% O2 saturation. HEENT: His head is atraumatic and normocephalic. Eyes are PERRLA. Sclerae nonicteric. Oral mucosa is slightly dry. NECK: Supple. LUNGS: Clear. HEART: S1, S2 normal. No S3. No S4. ABDOMEN: Soft, nontender, nondistended. EXTREMITIES: 2+ peripheral edema of the right foot and above the ankle. Erythema of the right foot, moderate. NEUROLOGIC: He is alert and oriented x3. There is no any motor deficits. LABORATORY DATA: Labs showed white count of 7.2, hemoglobin 11.2, hematocrit 34.2, platelet count is 168,000. Electrolytes within normal limits. BUN 44, creatinine 1.93. C-reactive protein 22.1, globulin 3.6. Rest of chemistry within normal limits. IMAGING: X-ray of the right foot showed degenerative changes. No acute osseous abnormalities. IMPRESSION: 1. Right foot cellulitis, [id number]. 2. Renal insufficiency, chronic, stage IV. 3. Hypertension. 4. Hyperlipidemia. 5. Chronic anemia. 6. History of transient ischemic attack. 7. History of prostate cancer. PLAN: Admission for observation. CONDITION: Fair. ACTIVITY: 1. Bedrest and bathroom privileges. 2. IV Hep-Lock. 3. IV clindamycin 900 mg q.8 hours IV piggyback. 4. Morphine sulfate 2 mg every 4 hours p.r.n. as needed. 5. DVT prophylaxis with heparin 5000 units every 12 hours subcutaneously. 6. PT and OT. Job ID: [id number]
[2018-07-15] MEDS: Clindamycin/D5W 900 MG in Premix Bag 1 BAG IVPB SCH ×4 (00:23→23:47)
[2018-07-15 07:59] LABS: #Eosinphils 0.3 thou/uL (0.0-0.7); #Lymphocytes 1.1 thou/uL (1.20-3.40); #Monocytes 0.6 thou/uL (0.11-0.59); #Neutrophils 3.3 thou/uL (1.40-6.50); %Basophils 0.5 % (0.0-1.0); %Eosinophils 5.4 % (0.0-10.0); %Lymphocytes 20.4 % (21.0-51.0); %Neutrophils 61.7 % (42.0-75.0); Hemoglobin 10.3 g/dL (14.0-18.0); Mean Corpuscular HGB CONC 33.4 g/dL (32.0-36.0); Mean Corpuscular Hemoglobin 30.3 pg (27.0-31.0); Mean Corpuscular Volume 90.8 fL (78.0-98.0); Mean Platelet Volume 8.1 fL (7.4-10.4); Platelet Count 151 thou/uL (130-400); RBC Distribution Width 11.8 % (11.5-14.5); Red Blood Cell (RBC) Count 3.41 mill/uL (4.70-6.10); White Blood Cell (WBC) Count 5.3 thou/uL (4.8-10.8)
[2018-07-15 08:09] LABS: Anion Gap 13 mmol/L (10-20); BUN (Urea Nitrogen) 44 mg/dL (8.4-25.7); Calc. Creatinine Clearance 29 mL/min (70-130); Calcium 9.5 mg/dL (7.8-10.44); Carbon Dioxide 25 mmol/L (23-31); Chloride 105 mmol/L (98-107); Estimated GFR-MDRD 36; Glucose 92 mg/dL (83-110); Potassium 4.2 mmol/L (3.5-5.1); Sodium 139 mmol/L (136-145)
[2018-07-15] MEDS: Morphine 2 MG/ML SYRINGE SLOW IVP PRN (08:09)
[2018-07-15] MEDS ORDERED: Enoxaparin Sodium 40 MG/0.4 ML SYRINGE SC SCH (09:00)
[2018-07-15] MEDS ORDERED: traMADol HCl 50 MG TAB PO PRN ×2 (09:37→09:52)
[2018-07-15] MEDS ORDERED: Senokot S 8.6-50 MG TAB PO SCH (10:00)
--- NOTE | 2018-07-15 10:27 | PRG ---
DATE OF SERVICE: 07/15/2018 SUBJECTIVE: The patient is seen and examined at the bedside. The patient's daughter is present in the room. He complains about right foot pain, which is quite severe. He was medicated with morphine, but he had some itching at the time of IV morphine push and with allergy to codeine. The nurse decided to stop it. Apparently, his codeine allergy is not the real allergy. He just gets sick to his stomach. It is intolerance. OBJECTIVE: VITAL SIGNS: Blood pressure is 168/80, pulse is 66, temperature is 98.3, respirations 18, O2 saturation 95% on room air. HEENT: His head is atraumatic and normocephalic. Eyes are PERRLA. Sclerae are nonicteric. Conjunctivae are palish. Oral mucosa is moist. NECK: Supple. LUNGS: Clear. HEART: S1, S2 normal. No S3. No S4. ABDOMEN: Soft. Nontender. Bowel sounds are present. No organomegaly. EXTREMITIES: Right foot; the lateral aspect of the forefoot is swollen and red and very tender to touch. NEUROLOGICAL: He is alert and oriented x3. There is no any motor deficits. He is able to move his all four extremities. LABORATORY DATA: Showed white count of 5.3, hemoglobin 10.3, hematocrit 31.0, platelet count 151,000. Normal electrolytes, BUN 44, creatinine 1.78. The rest of chemistry is within normal limits. IMPRESSION: 1. Right foot cellulitis, to rule out abscess. 2. Renal insufficiency, chronic, stage IV. 3. Hypertension. 4. Hyperlipidemia. 5. Chronic anemia. 6. History of transient ischemic attack. 7. Constipation. 8. History of prostate cancer. PLAN: Switch him from morphine to Vicodin. Start him on stool softener and continue his clindamycin. Obtain MRI with and without contrast of the right foot. Job ID: [id number]
[2018-07-15] MEDS: HYDROcodone/Acetaminophen 5/325 mg Tablet PO PRN ×3 (10:38→19:52)
[2018-07-15] MEDS ORDERED: Gadobenate Dimeglumine 529 MG/1 ML (20ML VIAL) ONE (13:50)
--- NOTE | 2018-07-15 14:35 | MRI ---
MRI RIGHT FOOT WITH AND WITHOUT IV CONTRAST: Date: 07/15/18 PROVIDED CLINICAL HISTORY: Right foot diffuse swelling and pain. FINDINGS: There is noncircumscribed fluid signal intensity within the subcutaneous adipose layer at the dorsum of the foot and adjacent to the medial and lateral malleoli. There is no evidence for associated cont rast enhancement. There is no evidence for a focal fluid collection to suggest abscess. There is no r egional joint effusion evident. There is patchy signal alteration present on fluid sensitive sequences involving the fifth metatarsal head and base of the fifth proximal phalanx. There is no significant joint fluid present at the fift h MTP joint. Degenerative changes are seen involving the first MTP joint. There is diffuse patchy signal alteratio n on fluid sensitive sequences within the intrinsic foot musculature without associated enhancement. The dorsal extensor and plantar flexor tendons demonstrate an intact MR appearance. There is greater than physiologic fluid signal intensity about the flexor hallucis longus tendon without significant t enosynovial enhancement. IMPRESSION: 1. Nonspecific signal changes within the subcutaneous adipose layer at the dorsum of the foot and ab out each malleolus. Findings may reflect cellulitis or lymphedema. There is no evidence for soft tiss ue fluid collection to suggest abscess. 2. Signal alteration involving the fifth metatarsal head and base of fifth proximal phalanx is nonsp ecific. If there is a wound in this region, osteomyelitis could not be excluded. Stress related marro w edema could also produce this appearance. POS: [facility]
[2018-07-15] MEDS: Senokot S 8.6-50 MG TAB PO SCH (19:52)
[2018-07-15] MEDS: Atorvastatin Calcium 20 MG TAB PO SCH (19:52)
[2018-07-15] MEDS: Aspirin Chewable 81 MG TAB PO SCH (19:52)
[2018-07-15] MEDS: Amlodipine 10 MG TAB PO SCH (19:52)
[2018-07-16] MEDS ORDERED: Non-Formulary Item 1 EACH (Omeprazole Magnesium [Prilosec] 20 MG) PO SCH (09:00)
[2018-07-16] MEDS ORDERED: Non-Formulary Item 1 EACH (Cholecalciferol (Vitamin D3) [Vitamin D3] 2,000 UNIT) PO SCH (09:00)
[2018-07-16] MEDS: HYDROcodone/Acetaminophen 5/325 mg Tablet PO PRN ×3 (09:22→20:54)
[2018-07-16] MEDS: Senokot S 8.6-50 MG TAB PO SCH ×2 (09:23→20:56)
[2018-07-16] MEDS: Folic Acid 1 MG TAB PO SCH (09:24)
[2018-07-16] MEDS: Clindamycin/D5W 900 MG in Premix Bag 1 BAG IVPB SCH ×2 (09:24→15:19)
[2018-07-16] MEDS: Docusate 100 MG CAP PO SCH (09:24)
[2018-07-16] MEDS: Ferrous Fumarate 324 MG TAB PO SCH (11:18)
[2018-07-16] MEDS ORDERED: Bisacodyl 5 MG TAB PO SCH (12:15)
--- NOTE | 2018-07-16 12:20 | PRG ---
DATE OF SERVICE: 07/16/2018 SUBJECTIVE: The patient is seen and examined at the bedside. He is still quite sensitive in the right foot area. His appetite is fair. OBJECTIVE: VITAL SIGNS: Blood pressure is 143/74, pulse is 64, temperature is 98.0, maximal temperature is 99.4, respiratory rate is 20, O2 saturation is 99%. HEENT: His head is atraumatic and normocephalic. Eyes are PERRLA. Sclerae are nonicteric. Oral mucosa is moist. NECK: Supple. LUNGS: Clear. HEART: S1, S2 normal. No S3. No S4. ABDOMEN: Soft, nontender. Bowel sounds are present. EXTREMITIES: Right foot erythema and swelling improved significantly. NEUROLOGICAL: He follows my commands. He moves his all 4 extremities. LABORATORY DATA: None today. IMAGING STUDIES: An MRI of the right lower extremity showed, 1. Nonspecific signal changes within the subcutaneous adipose layer at the dorsum of the foot and about each malleolus. Findings most likely reflecting cellulitis or lymphedema, and there is no evidence for soft tissue fluid collection to suggest abscess. 2. Signal alteration involving the fifth metatarsal head, and base of fifth proximal phalanx is nonspecific, but osteomyelitis could not be excluded. ASSESSMENT: 1. Right foot cellulitis. MRI is negative for any abscess formation. There is a possible osteomyelitis. 2. Renal insufficiency, chronic, stage 4. 3. Hypertension. 4. Hyperlipidemia. 5. Chronic anemia. 6. History of transient ischemic attack. 7. Constipation. 8. History of prostate cancer. PLAN: We are going to continue his Vicodin. He did not have any bowel movement yet, so we will use Dulcolax today. Continue his stool softener. We will continue his clindamycin nursing home facility to transfer him. Most likely he can be switched to oral clindamycin tomorrow with PT to work with him today. Job ID: [id number]
[2018-07-16] MEDS: Aspirin Chewable 81 MG TAB PO SCH (20:56)
[2018-07-16] MEDS: Atorvastatin Calcium 20 MG TAB PO SCH (20:56)
[2018-07-16] MEDS: Amlodipine 10 MG TAB PO SCH (20:56)
[2018-07-17] MEDS: Clindamycin/D5W 900 MG in Premix Bag 1 BAG IVPB SCH ×2 (00:26→07:32)
[2018-07-17] MEDS: Senokot S 8.6-50 MG TAB PO SCH ×2 (07:32→21:21)
[2018-07-17] MEDS: Docusate 100 MG CAP PO SCH (07:32)
[2018-07-17] MEDS: Folic Acid 1 MG TAB PO SCH (07:32)
[2018-07-17] MEDS: Ferrous Fumarate 324 MG TAB PO SCH (07:33)
--- NOTE | 2018-07-17 16:32 | PDOC.PN ---
- Subjective Encounter Start Date: 07/17/18 Encounter Start Time: 16:30 Subjective: feels better but has continued pain in R great toe and R index finger w -: mild swelling - Objective Resuscitation Status - Order Detail: 07/14/18 16:45 Resuscitation Status Routine Resuscitation Status: FULL: Full Resuscitation MAR Reviewed: Yes Vital Signs & Weight: Vital Signs (12 hours) Temp Pulse Resp BP Pulse Ox 07/17/18 15:10 98.9 F 66 20 151/68 H 94 L 07/17/18 08:16 96 07/17/18 08:00 98.3 F 62 20 172/79 H 96 Weight Weight 162 lb 1 oz I&O: 07/16/18 07/17/18 07/18/18 06:59 06:59 06:59 Intake Total 860 650 Balance 860 650 Result Diagrams: 07/15/18 07:32 07/15/18 07:32 Additional Labs: Laboratory Tests 05/25/18 04:00 Uric Acid 9.2 H Phys Exam - Physical Examination Constitutional: NAD HEENT: PERRLA, moist MMs, sclera anicteric, oral pharynx no lesions Neck: no nodes, no JVD, supple, full ROM Respiratory: no wheezing, no rales, no rhonchi, clear to auscultation bilateral Cardiovascular: RRR, no significant murmur, no rub Gastrointestinal: soft, non-tender, no distention, positive bowel sounds Musculoskeletal: no edema, pulses present Neurological: non-focal, normal sensation, moves all 4 limbs Psychiatric: normal affect, A&O x 3 Skin: no rash Dx/Plan (1) Acute gout Code(s): M10.9 - GOUT, UNSPECIFIED Status: Acute Qualifiers: Gout site: foot Laterality: right (2) Dyslipidemia Code(s): E78.5 - HYPERLIPIDEMIA, UNSPECIFIED Status: Acute Comment: Continue Lipitor 80mg hs (3) HLD (hyperlipidemia) Code(s): E78.5 - HYPERLIPIDEMIA, UNSPECIFIED Status: Acute Qualifiers: Hyperlipidemia type: mixed hyperlipidemia Qualified Code(s): E78.2 - Mixed hyperlipidemia (4) HTN (hypertension) Code(s): I10 - ESSENTIAL (PRIMARY) HYPERTENSION Status: Acute Qualifiers: Hypertension type: essential hypertension Qualified Code(s): I10 - Essential (primary) hypertension (5) History of CVA (cerebrovascular accident) Code(s): Z86.73 - PRSNL HX OF TIA (TIA), AND CEREB INFRC W/O RESID DEFICITS Status: Acute (6) CKD (chronic kidney disease) Code(s): N18.9 - CHRONIC KIDNEY DISEASE, UNSPECIFIED Status: Chronic Qualifiers: Chronic kidney disease stage: stage 3 (moderate) Qualified Code(s): N18.3 - Chronic kidney disease, stage 3 (moderate) Comment: Avoid nephrotoxic meds, serial creatinine - Plan plan discussed w/ family, DVT proph w/SCDs no clinical evidence of infection,cellulitis or osteomyelitis -: no Cx drawn but pt clinically does not present like sepsis -: will Rx w Ac Gout. recheck Uric acid -: monitor renal Fx. -: home meds as below.care discussed w family at bedside * . Review of Systems - Review of Systems Constitutional: malaise. negative: fever, chills, sweats, weakness, other Respiratory: negative: Cough, Dry, Shortness of Breath, Hemoptysis, SOB with Excertion, Pleuritic Pain, Sputum, Wheezing Cardiovascular: negative: chest pain, palpitations, orthopnea, paroxysmal nocturnal dyspnea, edema, light headedness, other Gastrointestinal: negative: Nausea, Vomiting, Abdominal Pain, Diarrhea, Constipation, Melena, Hematochezia, Other Genitourinary: negative: Dysuria, Frequency, Incontinence, Hematuria, Retention , Other Musculoskeletal: Foot Pain. negative: Neck Pain, Shoulder Pain, Arm Pain, Back Pain, Hand Pain, Leg Pain, Other Skin: negative: Rash, Lesions, Vladimir, Bruising, Other Neurological: negative: Weakness, Numbness, Incoordination, Change in Speech, Confusion, Seizures, Other - Medications/Allergies Allergies/Adverse Reactions: Allergies Allergy/AdvReac Type Severity Reaction Status Date / Time Penicillins Allergy Mild Verified 07/14/18 17:04 codeine Allergy Verified 07/14/18 17:04 Medications: Current Medications Hydrocodone Bitart/Acetaminophen ([place] 5/325) 1 tab PO Q4H PRN PRN Reason: Moderate Pain (4-6) Last Admin: 07/16/18 20:54 Dose: 1 tab Allopurinol (Zyloprim) 300 mg PO NOW GIRMA Stop: 07/17/18 18:45 Allopurinol (Zyloprim) 100 mg PO BID GIRMA Amlodipine Besylate (Norvasc) 10 mg PO HS [facility] Last Admin: 07/16/18 20:56 Dose: 10 mg Aspirin (Aspirin Chewable) 81 mg PO HS [facility] Last Admin: 07/16/18 20:56 Dose: 81 mg Atorvastatin Calcium (Lipitor) 20 mg PO HS [facility] Last Admin: 07/16/18 20:56 Dose: 20 mg Cholecalciferol (Vitamin D3) 2,000 units PO DAILY [facility] Last Admin: 07/17/18 07:32 Dose: 2,000 units Colchicine (Colcrys) 0.3 mg PO BID [facility] Docusate Sodium (Colace) 100 mg PO DAILY [facility] Last Admin: 07/17/18 07:32 Dose: 100 mg Ferrous Fumarate (Hemocyte) 324 mg PO DAILY [facility] Last Admin: 07/17/18 07:33 Dose: 324 mg Folic Acid (Folvite) 1 mg PO DAILY [facility] Last Admin: 07/17/18 07:32 Dose: 1 mg Morphine Sulfate (Morphine) 2 mg SLOW IVP Q4H PRN PRN Reason: Severe Pain (7-10) Last Admin: 07/15/18 08:09 Dose: 1 mg Pantoprazole Sodium (Protonix) 40 mg PO DAILY [facility] Last Admin: 07/17/18 07:32 Dose: 40 mg Senna/Docusate Sodium (Senokot S) 1 tab PO BID [facility] Last Admin: 07/17/18 07:32 Dose: 1 tab Sodium Chloride (Flush - Normal Saline) 10 ml IVF Q12HR [facility] Last Admin: 07/17/18 07:33 Dose: 10 ml Sodium Chloride (Flush - Normal Saline) 10 ml IVF PRN PRN PRN Reason: Saline Flush
[2018-07-17] MEDS ORDERED: Allopurinol 300 MG TAB PO SCH (16:45)
[2018-07-17] MEDS ORDERED: Colchicine 0.3 MG TAB PO SCH ×2 (16:45→21:00)
[2018-07-17] MEDS ORDERED: Colchicine 0.6 MG TAB PO SCH (17:15)
--- NOTE | 2018-07-17 19:44 | CON ---
DATE OF CONSULTATION: 07/17/2018 REASON FOR CONSULTATION: Foot pain with skin abnormalities. HISTORY OF PRESENT ILLNESS: An 88-year-old gentleman, history of hypertension, prostate cancer in remission, prior TIA, as well as gout, who had been in the hospital on May 12 because of respiratory failure with hypoxemia and possible aspiration pneumonia. He was placed on BiPAP initially and then did not have to be intubated, was treated with broad-spectrum coverage, eventually transitioned to Omnicef and transferred to rehabilitation. The patient at rehab developed some foot pain and was given gout treatment. His uric acid was found to be elevated and they felt that the foot pain was related to gouty arthritis. He, I think, went back to his home setting, and then there, he developed swelling of both right and left lower extremities, particularly around the feet area. He has chronic mobility impairment due to severe degenerative arthritis of knees. He is unable to extend the knees fully and he had to use a walker for ambulation, but for the past week before admission, he became more mobility impaired, developed worsening edema in the feet, and eventually was admitted with pain in both right and left feet, more intense on the right side. His initial BP was 150/70, pulse 72, respirations 20, temperature 98.5, and O2 saturations were 100% on room air, and his exam was remarkable for clear lungs, normal heart exam. There was some erythema in the right foot. We looked at the photos from admission and there were just focal areas of erythema of the skin, round-shaped, the size of a quarter approximately, in the lateral aspect of the right foot. Before admission, he had visited with his launch check out and he had done some form of debridement of a callus in the right fifth MPJ skin site. Initial lab data with a white cell count 7.2, hemoglobin 11, platelets 168, with 74% neutrophils, 9.9% lymphocytes, elevated monocytes. Chemistry with a creatinine of 1.93. His baseline is around that or may be even higher than that. GFR is 33. His previous uric acid had been measured twice with 9.2 and 9.3 results. CRP was 22 , albumin 3.6. No samples for culture were taken. The patient had a lower extremity MRI, which showed nonspecific signal changes in the subcutaneous adipose layer at the dorsum of the foot in about each malleolus and signal alteration involving the fifth metatarsal head, base of 5th proximal phalanx, nonspecific. The patient had a foot x-ray done the day before the MRI and this showed degenerative changes only. Currently, Mr. Madrigal is awake. He denies any headaches. No visual symptoms, sore throat, odynophagia, dysphagia. No cough, sputum production, or chest pain. No abdominal pain or diarrhea. No genitourinary symptoms. He is voiding in the urinal. He has difficulty in extending his legs because of knee arthrosis. He is still with pain in both right and left feet, but not as much as on admission. The swelling has reduced significantly as well. PAST MEDICAL HISTORY: Includes hyperlipidemia, hypertension, prostate cancer in remission, TIAs, gout. PAST SURGICAL HISTORY: Appendectomy, coronary artery bypass graft surgery, hernia repair, left hip replacement, prostatectomy, cataracts, bladder repair, skin cancer removal, stenting of carotid arteries. ALLERGIES: PENICILLIN, CODEINE. SOCIAL HISTORY: Drinks daily, never smoker. FAMILY HISTORY: Noncontributory. CURRENT MEDICATIONS: 1. Norvasc. 2. Aspirin. 3. Lipitor. 4. Vitamin D. 5. Colace. 6. Hemocyte. 7. Folvite. 8. Morphine. 9. Protonix. 10. Senokot. PHYSICAL EXAMINATION: VITAL SIGNS: T-max 99.4, currently 98.3. Blood pressure 170/79, pulse 62, respirations 20, and O2 saturation 96. SKIN: Shows a round-shaped area of erythema in the hindfoot, right side close to the plantar area, measuring about 1 cm in diameter, round, moderately tender. He has the area of previous debridement of the callus in the right foot. This is very shallow and is not tender to palpation. He also has a much smaller area of erythema in the opposite side in the foot and also another one in the left foot. He does have tenderness on palpation of the joints of the mid foot region and metatarsals, but no erythema is noted. The patient has a peripheral IV access. No Siegel catheter. HEENT: Ocular movements conjugate. Oral cavity is not remarkable. NECK: Supple without jugular venous distention. No carotid bruits. LUNGS: Symmetric air entry. HEART: S1 and S2, regular rate. No S3 or S4. No murmurs. ABDOMEN: Soft. Not distended or tender. No ascites. No bladder distention. GENITALIA: No genital abnormalities. EXTREMITIES: Pulses are 1+ in dorsalis pedis. He has difficulty extending the legs because of osteoarthrosis of knees. Plantar response are flexor. NEUROLOGIC: He is awake, oriented, and follows commands. Recollection is little bit difficult, but his daughter was in the room to help. LABORATORY DATA: The labs have been reviewed and the white cell count is down to 5.3, hemoglobin 10, platelets 151. ASSESSMENT: Prior transient ischemic attacks; osteoarthrosis in knees with mobility impairment; gout; edema of lower extremities; areas of likely pressure, inflammatory change in the hindfoot region, right side; and pain in the feet, possibly associated with gouty arthropathy. DISCUSSION: The clinical findings argue against infectious cellulitis. The areas of erythema are very focal and round-shaped and I believe are more consistent with a pressure damage than true infectious cellulitis. We would advise discontinuation of antimicrobial therapy. 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 Job ID: [id number] [facility]
[2018-07-17] MEDS ORDERED: Allopurinol 100 MG TAB PO SCH (21:00)
[2018-07-17] MEDS: Aspirin Chewable 81 MG TAB PO SCH (21:21)
[2018-07-17] MEDS: HYDROcodone/Acetaminophen 5/325 mg Tablet PO PRN (21:21)
[2018-07-17] MEDS: Amlodipine 10 MG TAB PO SCH (21:21)
[2018-07-17] MEDS: Atorvastatin Calcium 20 MG TAB PO SCH (21:21)
[2018-07-18 06:55] LABS: Anion Gap 14 mmol/L (10-20); BUN (Urea Nitrogen) 45 mg/dL (8.4-25.7); Calc. Creatinine Clearance 27 mL/min (70-130); Calcium 9.8 mg/dL (7.8-10.44); Carbon Dioxide 24 mmol/L (23-31); Chloride 106 mmol/L (98-107); Estimated GFR-MDRD 33; Glucose 81 mg/dL (83-110); Potassium 4.2 mmol/L (3.5-5.1); Sodium 140 mmol/L (136-145)
[2018-07-18] MEDS ORDERED: Colchicine 0.3 MG TAB PO SCH (07:00)
[2018-07-18] MEDS: HYDROcodone/Acetaminophen 5/325 mg Tablet PO PRN (08:36)
[2018-07-18] MEDS: Docusate 100 MG CAP PO SCH (08:37)
[2018-07-18] MEDS: Senokot S 8.6-50 MG TAB PO SCH (08:37)
[2018-07-18] MEDS: Folic Acid 1 MG TAB PO SCH (08:43)
[2018-07-18] MEDS ORDERED: Allopurinol 100 MG TAB PO SCH (09:00)
[2018-07-18] MEDS ORDERED: hydrALAZINE 10 MG TAB PO SCH ×2 (09:00→09:08)
[2018-07-18] MEDS: Ferrous Fumarate 324 MG TAB PO SCH (09:41)
[2018-07-18 13:21] VITALS: BP 131/72; TEMP 97.3
--- NOTE | 2018-07-19 06:19 | DIS ---
DATE OF ADMISSION: 07/14/2018 DATE OF DISCHARGE: 07/18/2018 CONDITION: At the time of discharge, stable and improved. DISCHARGE DISPOSITION: [facility]. DISCHARGE DIAGNOSES: 1. Acute gout. 2. Foot pain secondary to acute gout, infectious etiology ruled out. 3. Dyslipidemia. 4. Hypertension. 5. History of CVA. 6. Chronic kidney disease, stage 3. DISCHARGE MEDICATIONS: New medication; 1. Hydralazine 10 mg p.o. t.i.d. 2. Colchicine 0.3 mg p.o. b.i.d. for two weeks. 3. Allopurinol 75 mg daily for two weeks. 4. Florastor 250 mg p.o. daily. Resume home medications as follows; 1. Vitamin D3 2000 units daily. 2. Ferrous sulfate 324 mg daily. 3. Folic acid 1 mg daily. 4. Amlodipine 10 mg daily. 5. Aspirin 81 mg daily. 6. Lipitor 20 mg daily. 7. Omeprazole 20 mg daily. 8. Tramadol p.r.n. 9. Dulcolax p.r.n. IN-HOUSE CONSULTATION: Infectious Disease, Dr. Sepulveda. PROCEDURES IN THE HOSPITAL: 1. X-ray of the right foot, which shows only degenerative changes without any osseous deformity. 2. Doppler ultrasound of the right lower extremity, which is negative for any DVT. 3. Lower extremity MRI of the right foot. Nonspecific signal changes in the fifth metatarsal head and base of fifth proximal phalanx with some subcutaneous edema. HISTORY OF PRESENTING ILLNESS: Mr. Madrigal is a very pleasant 88-year-old male with past medical history of hypertension, dyslipidemia, and prostate cancer, who presented to the emergency room with complaints of right foot pain, swelling and redness. He was found to have some erythema of his right foot and was diagnosed with cellulitis and was admitted for further evaluation and care. He was started on IV antibiotics. Please see admission history and physical dictated by Dr. Olivia on 07/14/2018. HOSPITAL COURSE: The patient underwent MRI of his right foot, which was inconclusive for osteomyelitis. By the time I took over this patient's care, his redness has all gone, but he was having significant tenderness on the great toe area in his right foot along with some swelling and redness of his proximal interphalangeal joint of his index finger in the right hand. Uric acid levels were checked and was found to be elevated. Infectious Disease was consulted as I was not sure if the patient had cellulitis or osteomyelitis versus acute gouty arthropathy. Dr. Speulveda saw the patient and agreed that he does not need antibiotics as this was not likely an infectious process. He was treated with allopurinol and colchicine after a loading dose, dose was reduced based on the renal failure. The patient had significant improvement in his symptoms with this, and by the next day, he was not tender in his foot at all. On my examination this morning, he has no swelling or erythema of his right foot or elsewhere for that matter. As of this morning, he has been approved for nursing and rehab at [facility] and is cleared for discharge. He is hemodynamically stable. Vital signs are stable. I have seen and examined him this morning. Rate and rhythm regular. Chest is clear to auscultation bilaterally. DISCHARGE PLAN: Discharge plan was discussed with the patient and daughter at bedside and they verbalized understanding and are eager to start rehab for him. PRIMARY CARE PHYSICIAN: Dr. Anibal Stark. They were instructed to follow up with Dr. Stark in about 1 to 2 weeks after he is done with his rehab. He will be discharged. TOTAL TIME SPENT: 33 minutes. Job ID: [id number]
[2018-07-19] MEDS ORDERED: Allopurinol 100 MG TAB PO SCH (09:00)
== END 2018-07-18 14:25 | DRG 554 ==
LOC: ERS 11:31 → T4-A 16:55 → OBSVTOIN 07-16 16:28
PROVIDERS: ADMIT Internal Medicine; ATTEND Internal Medicine
DX: M10.9 Gout, unspecified (principal); L03.115 Cellulitis of right lower limb; I12.9 Hypertensive chronic kidney disease with stage 1 through stage 4 chronic kidney disease, or unspecified chronic kidney disease; E78.5 Hyperlipidemia, unspecified; D63.1 Anemia in chronic kidney disease; Z86.73 Personal history of transient ischemic attack (TIA), and cerebral infarction without residual deficits; Z85.46 Personal history of malignant neoplasm of prostate; K59.00 Constipation, unspecified; N18.3 Chronic kidney disease, stage 3 (moderate)
CPT/HCPCS: 36415; 80048; 80053; 84550; 85025; 86140; 96365; 96375; A9577; J2270; J3490